=== PATIENT | male | born 1960 | race Native Hawaiian/Other Pacific Islander ===

== ENCOUNTER 2017-08-30 10:27 | Day surgery (SDC) | payer OTHER, MEDICARE ==
[~2017-08-30 10:27] MED LIST: ceFAZolin 2 GM/50 ML 2 GM/50 ML BAG IV ONE
[2017-08-30] MEDS ORDERED: LACTATED RINGERS 1,000 ML IV ONE (11:01)
[2017-08-30] MEDS ORDERED: BUPIVACAINE 0.5% PF 10 ML VIAL ONE (16:24)
[2017-08-30] MEDS ORDERED: BUPIVACAINE 0.5% PF 30 ML VIAL INFIL ONE (17:03)
[2017-08-30] MEDS ORDERED: BUPIVACAINE 0.5% PF 10 ML VIAL IM ONE (17:14)
--- NOTE | 2017-08-30 17:26 | OPERATIVE REPORT ---
Operative Report - General Procedure Date: 08/30/17 Planned Procedure: LEFT subclavian Portacath placement - Procedure Note Anesthesia Technique: Local (20 mL 1/2% marcaine), MAC IV Fluids (mL): 800 Estimated Blood Loss (mL): 5 Complications: None. - Other Other Information/Narrative: OPERATIVE DESCRIPTION/REPORT: After verbal and written informed consent was obtained detailing the risks of infection, bleeding requiring transfusion with its risks, nerve injury, and , and after I met with the patient confirming the surgery and the site of the surgery, the patient was brought to the operative suite and placed supine on the operating table. Great care was taken to avoid pressure points to prevent pressure necrosis or nerve injury. Monitoring devices were applied along with TEDs and pneumatic compressive stockings (to prevent DVT). The patient received preoperative antibiotics for surgical prophylaxis. Isa Sam sedated and anesthetized the patient for the entire procedure. The patient was prepped and draped in the usual sterile manner. A "time in" then confirmed that the patient was identified with 3 identifiers (name, date and medical record number), the history and physical was in the chart, the signed consent confirming the procedure was in the chart, the patient was in the correct position, the aforementioned prophylactic measures were in place or given, we had the correct personnel and equipment to complete the procedure and that anesthesia, surgery and nursing were given an opportunity to express any concerns. With the agreement of everyone in the room, we proceeded with the operation. After the subclavian region was anesthetized using % marcaine and the patient placed in Trendelenberg position, an [employer] Smartport kit (Catalog # [id number], Lot #[id number]) was opened. The finder needle was inserted into the subclavian vein taking great care to place it just under the clavicle in order to minimize the risk of pneumothorax. When good venous blood return was obtained, the wire was placed through the needle and into the vein without difficulty. Cardiac irritability confirmed that the catheter was correctly going down towards the heart. Below and lateral to the needle insertion site, the area was anesthetized again using % marcaine and a transverse incision was made just large enough to accommodate the port. This incision was taken down to the fascia using sharp dissection and the area for the port was created using blunt downward dissection. Meticulous hemostasis was obtained using Bovie electrocautery. A knife was inserted along the wire to widen the insertion site and this was further dilated using a Sharon. The port was flushed with heparinized saline and placed in the pouch and the catheter was then passed to the needle opening using the passer. The catheter was then measured against the patients anterior chest and cut so that the tip would lie 2 cm below the manubrial-sternal junction. The port was secured to the fascia using a 3-0 Prolene on the side of the opening of the port. The catheter was then wiped and wrapped with a heparinized soaked 4x4. The dilator and sheath were then carefully inserted over the wire and the dilator and wire withdrawn. The catheter was then inserted into the sheath and the sheath was broken away from the catheter leaving the catheter in place in the vein. An X-ray confirmed placement of the catheter tip in the right atrium/supracardiac vena cava without pneumothorax. Using a Hueber needle the port was accessed and good blood return as well as easy flush was noted. The subcutaneous tissue was approximated using 3-0 Vicryl and the skin incisions were approximated with 4-0 Monocryl in a subcuticular fashion. The skin prep was washed off and prepped with benzoin. Steristrips were applied. At this point a time out was performed that confirmed that all the counts were correct, the procedure that was performed, the blood loss, the IV fluids administered, and the patients condition. A dressing was placed on the wound. Having tolerated the procedure well, the patient was taken to short stay in good and stable condition. The patient was instructed that the Portacath could be used immediately. [employer] disclaimer: This document was created in part using voice recognition technology. Because of the inherent limitations of the system ([employer]'s [employer] D[employer]ate user manual states that the licensee understands that speech recognition is a statistical process and that recognition errors are inherent in the process), occasional same sounding word substitutions and grammatical errors do occur and persist despite proofreading. Please read this document for context.
[2017-08-30] MEDS ORDERED: fentaNYL 250 MCG/5 ML VIAL IVP ONE (17:30)
[2017-08-30] MEDS ORDERED: PROPOFOL 200 MG/20 ML VIAL IVP ONE (17:30)
--- NOTE | 2017-08-30 17:33 | XRAY Report ---
EXAM: CHEST RADIOGRAPHY EXAM DATE: 08/30/2017 05:18 PM. CLINICAL HISTORY: LINE PLACEMENT CONFIRMATION. COMPARISON: None. TECHNIQUE: 1 view. FINDINGS: Lungs/Pleura: Right costophrenic angle not included. No definite acute infiltrate, consolidation, eff usion, or pneumothorax. Mediastinum: Mild cardiomegaly. Upper lobe vessels not distended. Other: Left Port-A-Cath with tip in mid to lower SVC about 1.3 cm below level of lucius. IMPRESSION: Left Port-A-Cath placement. [facility] Referring Provider Line: [phone] SITE ID: [id number]
[2017-08-30 17:51] VITALS: BP 124/87
== END 2017-08-30 10:28 | disposition home or self-care (01) ==
LOC: SDS 10:27
PROVIDERS: ATTEND Surgery
PROC: 05H633Z Insertion of Infusion Device into Left Subclavian Vein, Percutaneous Approach (ICD-10-PCS; principal; 2017-08-30 11:45)
DX: G12.21 Amyotrophic lateral sclerosis (principal); E11.9 Type 2 diabetes mellitus without complications; I10 Essential (primary) hypertension
CPT/HCPCS: 36561; C1788; J0690; J3010; J7120; 71045

== ENCOUNTER 2019-08-16 15:29 | Outpatient (CLI) | payer SELFPAY | END 2019-08-16 15:30 | disposition home or self-care (01) | LOC: LAB 15:29 | DX: Z01.89 Encounter for other specified special examinations (principal) ==

== ENCOUNTER 2020-02-06 05:11 | Outpatient (CLI) | payer OTHER, MEDICARE | END 2020-02-06 23:59 | disposition critical access hospital (66) | LOC: EMS 05:11 | PROVIDERS: ATTEND Surgery | DX: S01.01XA Laceration without foreign body of scalp, initial encounter (principal); M25.552 Pain in left hip; M54.9 Dorsalgia, unspecified; R11.0 Nausea; W18.39XA Other fall on same level, initial encounter; Y92.000 Kitchen of unspecified non-institutional (private) residence as the place of occurrence of the external cause | CPT/HCPCS: A0425; A0427 ==

== ENCOUNTER 2020-02-06 05:28 | Inpatient (IN) | payer OTHER, MEDICARE ==
--- NOTE | 2020-02-06 05:31 | ED Physician Documentation ---
History of Present Illness - Stated complaint Stated Complaint: GLF - History obtained from History obtained from: Patient - Additonal information Additional information: Is a 59-year-old male who has ALS today was in the kitchen when he got dizzy and fell and hit his head he arrives see collared and backboarded he is complaining of head neck and upper back pain.Patient denies taking blood thinners. Review of Systems Constitutional: reports: Reviewed and negative Eyes: reports: Reviewed and negative Ears: reports: Reviewed and negative Nose: reports: Reviewed and negative Throat: reports: Reviewed and negative Cardiac: reports: Reviewed and negative Respiratory: reports: Reviewed and negative GI: reports: Reviewed and negative : reports: Reviewed and negative Skin: reports: Laceration (s) Musculoskeletal: reports: Reviewed and negative Neurologic: reports: Head injury Psychiatric: reports: Reviewed and negative Endocrine: reports: Reviewed and negative Immunocompromised: reports: Reviewed and negative PD PAST MEDICAL HISTORY - Past Medical History Cardiovascular: Hypertension Endocrine/Autoimmune: Type 2 diabetes Musculoskeletal: Chronic back pain - Past Surgical History General: Cholecystectomy, Colonoscopy, EGD Ortho: Rotator cuff repair, Arthroscopic surgery, Spine surgery, Other - Present Medications Home Medications: Ambulatory Orders Medication Instructions Recorded Confirmed No Known Home Medications 02/06/20 02/06/20 - Allergies Allergies/Adverse Reactions: Allergies Allergy/AdvReac Type Severity Reaction Status Date / Time No Known Drug Allergies Allergy Verified 08/25/17 15:32 PD ED PE NORMAL - Vitals Vital signs reviewed: Yes - General General: Alert and oriented X 3, No acute distress, Well developed/nourished - HEENT HEENT: PERRL, Other (Abrasions noted to the left side of the scalp, swelling to the left side of the face as well no raccoon eyes no tomas sign no septal hematoma no acute missing teeth no hemotympanum bilaterally) - Neck Neck: Supple, no meningeal sign - Cardiac Cardiac: RRR, No murmur - Respiratory Respiratory: No respiratory distress, Clear bilaterally - Abdomen Abdomen: Normal bowel sounds, Soft, Non tender, Non distended - Back Back: Other (thoracic ttp, no step offs or deformities) - Derm Derm: Warm and dry, Other - Extremities Extremities: No deformity - Neuro Neuro: Alert and oriented X 3, Other (baseline from ALS, unable to move arms, no acute neurological deficit noted.) - Psych Psych: Normal mood, Normal affect Results - Vitals Vitals: Vital Signs - 24 hr 02/06/20 02/06/20 06:42 07:13 Heart Rate 69 Respiratory 16 18 Rate Blood Pressure 132/81 H O2 Saturation 99 99 Oxygen O2 Source Room air - EKG (time done) 05:57 Rate: Other (no stemi) - Labs Labs: Laboratory Tests 02/06/20 02/06/20 02/06/20 06:36 06:36 06:36 WBC 15.8 H RBC 5.00 Hgb 15.5 Hct 46.5 MCV 93.0 MCH 31.0 MCHC 33.3 RDW 13.2 Plt Count 238 MPV 9.3 Neut # (Auto) 14.2 H Lymph # (Auto) 0.5 L [place] # (Auto) 0.9 Eos # (Auto) 0.0 Baso # (Auto) 0.0 Absolute Nucleated RBC 0.00 Nucleated RBC % 0.0 PT 12.4 INR 1.1 APTT 29.3 Sodium 135 Potassium 3.8 Chloride 102 Carbon Dioxide 24 Anion Gap 9.0 BUN 24 H Creatinine 0.8 Estimated GFR (MDRD) 98 Glucose 167 H Calcium 9.5 Total Bilirubin 1.3 H AST 40 ALT 38 Alkaline Phosphatase 183 H Total Creatine Kinase 1097 H* Troponin I High Sens Total Protein 7.4 Albumin 3.9 Globulin 3.5 Albumin/Globulin Ratio 1.1 Lipase 30 Ethyl Alcohol < 5.0 02/06/20 06:36 WBC RBC Hgb Hct MCV MCH MCHC RDW Plt Count MPV Neut # (Auto) Lymph # (Auto) [place] # (Auto) Eos # (Auto) Baso # (Auto) Absolute Nucleated RBC Nucleated RBC % PT INR APTT Sodium Potassium Chloride Carbon Dioxide Anion Gap BUN Creatinine Estimated GFR (MDRD) Glucose Calcium Total Bilirubin AST ALT Alkaline Phosphatase Total Creatine Kinase Troponin I High Sens 18.7 Total Protein Albumin Globulin Albumin/Globulin Ratio Lipase Ethyl Alcohol PD MEDICAL DECISION MAKING - ED course Complexity details: considered differential (Closed head injury, scalp laceration, facial fracture, cervical spine injury, thoracic spine injury, pelvic injury. Electrolyte derangement dehydration UTI), other (Patient will be signed out at shift change to Dr. Leonardo Colbert. ) Departure - Departure Disposition: ED Place in Observation Clinical Impression: Nasal fracture, Acetabular fracture, Post concussive syndrome, Lightheaded, Scalp laceration, ALS (amyotrophic lateral sclerosis) Fall Qualifiers: Encounter type: initial encounter Qualified Code(s): W19.XXXA - Unspecified fall, initial encounter Condition: Stable Discharge Date/Time: 02/06/20 10:42
[2020-02-06] MEDS ORDERED: BACITRACIN ZINC OINT 1 PACKET TOP STA (05:45)
[2020-02-06] MEDS ORDERED: TETANUS/DIPHTHERIA/PERTUSSIS 0.5 ML SYRINGE IM ONE (05:45)
[2020-02-06 06:50] LABS: BASOPHILS % (AUTO) 0.3 %; EOSINOPHILS % (AUTO) 0.3 %; HGB - HEMOGLOBIN 15.5 g/dL (14.0-18.0); LYMPHOCYTES # (AUTO) 0.5 10^3/uL (1.5-3.5); LYMPHOCYTES % (AUTO) 3.4 %; MEAN CORPUSCULAR HGB CONC 33.3 g/dL (32.0-36.0); MEAN PLATELET VOLUME 9.3 fL (7.4-11.4); MONOCYTES # (AUTO) 0.9 10^3/uL (0.0-1.0); MONOCYTES % (AUTO) 5.8 %; NEUTROPHILS # (AUTO) 14.2 10^3/uL (1.5-6.6); NEUTROPHILS % (AUTO) 89.6 %; PLT - PLATELET COUNT 238 10^3/uL (130-450); RED CELL DISTRIBUTION WIDTH 13.2 % (12.0-15.0); WHITE BLOOD COUNT 15.8 x10^3/uL (4.8-10.8)
[2020-02-06 06:58] LABS: ALBUMIN 3.9 g/dL (3.2-5.5); ALBUMIN/GLOBULIN RATIO 1.1 (1.0-2.2); ALKALINE PHOSPHATASE 183 IU/L (42-121); ALT ALANINE AMINOTRANSFERASE 38 IU/L (10-60); AST ASPARTATE AMINOTRANSFERASE 40 IU/L (10-42); BILIRUBIN,TOTAL 1.3 mg/dL (0.2-1.0); BUN - BLOOD UREA NITROGEN 24 mg/dL (6-20); CALCIUM 9.5 mg/dL (8.5-10.3); CARBON DIOXIDE - CO2 24 mmol/L (21-32); CHLORIDE 102 mmol/L (101-111); CREATININE 0.8 mg/dL (0.6-1.2); GLUCOSE 167 mg/dL (70-100); LIPASE 30 U/L (22-51); SODIUM 135 mmol/L (135-145); TOTAL PROTEIN 7.4 g/dL (6.7-8.2)
[2020-02-06 07:00] LABS: CK- CREATINE KINASE 1097 IU/L (22-269)
[2020-02-06] MEDS ORDERED: SODIUM CHLORIDE 0.9% 1,000 ML IV STA (07:01)
[2020-02-06 07:17] LABS: INR 1.1 (0.8-1.2); PT - PROTHROMBIN TIME 12.4 secs (9.9-12.6)
[2020-02-06 07:28] LABS: PARTIAL THROMBOPLASTIN TIME 29.3 secs (24.9-33.3)
[2020-02-06] MEDS ORDERED: KETOROLAC 30 MG/ML VIAL IVP STA (07:50)
[2020-02-06] MEDS ORDERED: MECLIZINE 12.5 MG TABLET PO STA (07:50)
--- NOTE | 2020-02-06 08:08 | XRAY Report ---
PROCEDURE: Pelvis 1 View INDICATIONS: fall TECHNIQUE: 1 view(s) of the pelvis acquired. COMPARISON: None. FINDINGS: Bones: There is a minimally displaced fracture along the superior lateral aspect of the left acetabul ar roof. No suspicious bony lesions. Lower lumbar fusion screws are noted. Soft tissues: Visualized bowel gas pattern is normal. Moderate stool is noted. No suspicious soft t issue calcifications. IMPRESSION: Minimally displaced lateral left acetabular roof fracture. The above findings are concordant with preliminary report. Reviewed by: Bria Avina MD on 02/06/2020 8:06 AM PDT Approved by: Bria Avina MD on 02/06/2020 8:06 AM PDT Station ID: [id number]
--- NOTE | 2020-02-06 08:09 | CT Report ---
PROCEDURE: HEAD WO INDICATIONS: fall head injury TECHNIQUE: Noncontrast 4.5 mm thick angled axial sections acquired from the foramen magnum to the vertex. For r adiation dose reduction, the following was used: automated exposure control, adjustment of mA and/or kV according to patient size. COMPARISON: CT C-spine 02/06/2020 FINDINGS: Image quality: Excellent. CSF spaces: Basal cisterns are patent. No extra-axial fluid collections. Ventricles are normal in size and shape. Brain: No midline shift. No intracranial masses or hemorrhage. Jiménez-white matter interface is norm al. Skull and face: Calvarium and visualized facial bones are intact, without suspicious lesions. Sinuses: Visualized sinuses and mastoids are clear. IMPRESSION: 1. No acute intracranial process. The above findings are concordant with preliminary report. Reviewed by: Bria Avina MD on 02/06/2020 8:08 AM PDT Approved by: Bria Avina MD on 02/06/2020 8:08 AM PDT Station ID: [id number]
--- NOTE | 2020-02-06 08:18 | CT Report ---
PROCEDURE: CERVICAL SPINE WO INDICATIONS: fall TECHNIQUE: Noncontrast 3 mm thick sections acquired from the skull base to the T4 level. Sagittal and coronal r eformats were then constructed. For radiation dose reduction, the following was used: automated exp osure control, adjustment of mA and/or kV according to patient size. COMPARISON: None. FINDINGS: Image quality: Excellent. Bones: No fractures or dislocations. Visualized superior ribs are intact. Soft tissues: Prevertebral soft tissues are normal in thickness. No paravertebral hematomas. No ap ical pneumothoraces. Note is made of a small amount of contour bulge at the lower aspect of the visu alized trachea, most consistent with a small amount of mucus in the airway at that site. IMPRESSION: No trauma found. Presumed small amount of mucus within the lower trachea at the axial level of the tomas ng apices. Reviewed by: Mervin Fernandez MD on 02/06/2020 8:17 AM PDT Approved by: Mervin Fernandez MD on 02/06/2020 8:17 AM PDT Station ID: [id number]
--- NOTE | 2020-02-06 08:24 | CT Report ---
PROCEDURE: THORACIC SPINE WO INDICATIONS: fall thoracic back pain TECHNIQUE: Noncontrast 3 mm thick sections acquired through the region of interest in the thoracic spine. Sagit donnell and coronal reformats were then constructed. For radiation dose reduction, the following was used : automated exposure control, adjustment of mA and/or kV according to patient size. COMPARISON: Cervical spine plain film imaging same day.. FINDINGS: Image quality: Excellent. Bones: There is normal overall bony alignment. No acute vertebral body compression fractures. No s uspicious sclerotic or lytic bony lesions. Central spinal canal is of normal overall caliber. Soft tissues: No paravertebral masses or hematomas. Visualized posteromedial lungs appear clear exc ept for what appears to be mild posterior atelectasis or scarring at each lung base.. IMPRESSION: Mild atelectasis or scarring in each lung base posteriorly, no trauma found. Mild degenerative disc d isease and facet osteoarthritis noted along the thoracic spine, and extending into the cervical spine . Incidental note is made of a small amount of contour deformity formation at the left anterolateral tracheal mucosal surface, level of the lung apices. This likely is mild mucous retention. Reviewed by: Mervin Fernandez MD on 02/06/2020 8:22 AM PDT Approved by: Mervin Fernandez MD on 02/06/2020 8:22 AM PDT Station ID: [id number]
--- NOTE | 2020-02-06 09:03 | CT Report ---
PROCEDURE: MAXILLOFACIAL WO INDICATIONS: fall on face TECHNIQUE: Noncontrast 1.5 mm thick axial images acquired from the mandible through the frontal sinuses, with co jerome and sagittal reformatting. For radiation dose reduction, the following was used: automated ex posure control, adjustment of mA and/or kV according to patient size. COMPARISON: None. FINDINGS: Image quality: Excellent. Bones and teeth: Orbital allen are intact. Sinus allen show no fracture or deformity. Nasal bones and septum are intact except for what appears to be a small nondisplaced fracture involving the anter ior border of the nasal bones bilaterally.. There is bilateral nasal airway stenosis associated with mild rightward deviation of the midline nasal septum and mucosal thickening involving the nasal turbi nates. Visualized portions of the mandible demonstrate no fractures or subluxation. Zygomatic arches are intact. Pterygoid plates are intact. Visualized portions of the skull base and auditory canals are intact. Sinuses: Paranasal sinuses are aerated, without fluid levels, mucosal thickening, or mucoceles. Mas toid air cells are aerated. Soft tissues: No edema, masses, or fluid collections. No enlarged lymph nodes. No soft tissue lace rations or debris. Vascular: Visualized vascular structures appear normal in the absence of contrast. Bony vascular fo ramina and canals are intact. IMPRESSION: Apparent minimal fracture involving the anterior border of the nasal bones bilaterally, morphologic anomaly of mild rightward deviation of the midline nasal septum. Mucosal thickening invol ves the nasal turbinates bilaterally further accentuating bilateral nasal airway stenosis. Reviewed by: Mervin Fernandez MD on 02/06/2020 9:02 AM PDT Approved by: Mervin Fernandez MD on 02/06/2020 9:02 AM PDT Station ID: [id number]
--- NOTE | 2020-02-06 09:06 | XRAY Report ---
PROCEDURE: Chest 1 View X-Ray INDICATIONS: fall TECHNIQUE: One view of the chest was acquired. COMPARISON: CT chest 05/22/2015 FINDINGS: Surgical changes and devices: Port-A-Cath. Lungs and pleura: Minimal streaky opacities are noted within the left base. There is costophrenic ang le bilateral blunting. Mediastinum: Mediastinal contours appear normal. Heart size is normal. Bones and chest wall: No suspicious bony lesions. Overlying soft tissues appear unremarkable. IMPRESSION: 1. Streaky opacities within the left base likely atelectasis.Superimposed trace effusion cannot be ex cluded. 2. Blunting of the right costophrenic angle which may represent scarring versus trace effusion. The above findings are concordant with preliminary report. Reviewed by: Bria Avina MD on 02/06/2020 9:05 AM PDT Approved by: Bria Avina MD on 02/06/2020 9:05 AM PDT Station ID: [id number]
[2020-02-06] MEDS ORDERED: LACTATED RINGERS 1,000 ML IV STA (09:15)
--- NOTE | 2020-02-06 09:22 | ED Physician Documentation ---
ED Addendum - Addendum Addendum: 02/06/20 09:20 The patient is having some headache and some neck pain still but not too significant. His hip hurts but he is able to move his hip around well. He is feeling somewhat dizzy with head motion and also lightheaded with sitting up. This seems likely postconcussive. It is quite limiting his ability to even sit up. Compounding with his ALS, he is unable to really stand and navigate safely. This altered mental status with lightheadedness and headache after injury I feel has him unsafe for being able to even ambulate at this time.
[2020-02-06] MEDS ORDERED: oxyCODONE 5 MG TABLET PO PRN (09:24)
[2020-02-06] MEDS ORDERED: ONDANSETRON ODT 4 MG TABLET TL PRN (09:24)
[2020-02-06] MEDS ORDERED: ACETAMINOPHEN 325 MG TABLET PO PRN (09:24)
[2020-02-06] MEDS ORDERED: SODIUM CHLORIDE FLUSH 0.9% 10 ML SYRINGE IVP PRN (09:24)
--- NOTE | 2020-02-06 10:54 | PHARMACY PROGRESS NOTE ---
- Best Possible Medication History Admit Date and Time: 02/06/20923 Processed by: Pharmacy Medication History completed: Yes Patient Interview: Completed Secondary Source(s): Pharmacy records (PATIENT INTERVIEWED BY [employer]IPMENT OPERATOR. PATIENT CONFIRMS HE ONLY TAKES [facility] HERBAL REMEDY AT HOME. ), Insurance records As the person ultimately responsible for medication therapy, providers are able to order a medication from an existing home medication list in [facility] via the "Reconcile Routine" prior to Confirmation of that medication by desktop support manager. Such practice is discouraged except when the physician, in their clinical judgment, deems that a medical need exists for a medication without regard to previous use.
[2020-02-06 12:48] LABS: BILIRUBIN,URINE NEGATIVE (NEGATIVE); GLUCOSE, URINE (UA) 100 mg/dL (NEGATIVE); KETONES,URINE (UA) 15 mg/dL (NEGATIVE); LEUKOCYTE ESTERASE, URINE NEGATIVE (NEGATIVE); NITRITE,URINE NEGATIVE (NEGATIVE); OCCULT BLOOD,URINE MODERATE (NEGATIVE); PROTEIN,URINE 100 mg/dL (NEGATIVE); UROBILINOGEN,URINE 0.2 (NORMAL) E.U./dL (NORMAL)
[2020-02-06 12:50] LABS: CLARITY,URINE CLEAR (CLEAR)
[2020-02-06 13:11] LABS: BACTERIA,URINE Rare /HPF (None Seen); RBC,URINE 0-5 /HPF (0-5); SQUAMOUS EPITHELIAL CELL,UR NONE SEEN (<= Few)
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
--- NOTE | 2020-02-06 19:47 | HISTORY & PHYSICAL EXAMINATION ---
DATE OF SERVICE: 02/06/2020 Physician: Jennifer Forde MD PRIMARY CARE PROVIDER: Chase Newman MD. NEUROLOGIST: Dr. Martin, [facility]. CHIEF COMPLAINT: Severe dizziness with fall. HISTORY OF PRESENT ILLNESS: Patient is a very pleasant, male who Dictations ends here TD: 02/06/2020 17:21
--- NOTE | 2020-02-06 20:02 | HISTORY & PHYSICAL EXAMINATION ---
DATE OF SERVICE: 02/06/2020 Physician: Jennifer Forde MD PRIMARY CARE PROVIDER: Huber Newman MD. NEUROLOGIST: Dr. Martin at [facility]. CHIEF COMPLAINT: Acute vertigo and fall. HISTORY OF PRESENT ILLNESS: The patient began having symptoms of fasciculations and left arm weakness and leg weakness approximately 2013. He had two lumbar surgeries related to L and I injury. It required so much rehab that he felt that he was weak and tired from not enough rehabilitation. He went to go see the surgeon, who did his previous lumbar surgeries, and they did nerve conduction velocities and EMGs of upper extremity weakness and triceps shrinking, and initially the cervical spinal stenosis diagnosis was thought of; however, with those tests, he was sent for a second opinion from neurology and begin the laborious process of documenting amyotrophic lateral sclerosis. He then had a Port-A-Cath placement in 2017 for Radicava treatment. He did that for awhile, until he felt that it was making him "worse, not better." He stopped that approximately spring 2018. All along, he has known the prognosis of his disease. At this time, he really cannot use his arms very well. He can use his fingers and his hand a little bit. He has lost weight, because he has been unable to eat due to the inability to feed himself well. He has dysphagia, has to be careful and drink plenty of fluids. He is incontinent of urine and stool at times. He can still stand and walk a few steps, but it is very laborious. He lives alone. He no longer goes upstairs in his house and only lives downstairs. The few steps he does take will take him forever to recover. For instance, he describes eating as bringing himself to a standing position, walking to the kitchen sink, using his hand to lower his face down to the sink and bring his hand up at the same time to put a mouthful of food in his hand. He will attempt 2-3 mouthfuls and then have to go sit down again. It will take him an hour to eat a bowl of oatmeal. He has had a few falls, mainly because his legs have been weak and they give out from underneath him. He gets occasional help from his 2 daughters. One daughter lives in [place] and 1 daughter lives down the street from him. He does have a son, but his son is not as helpful as his daughters are. In the last few weeks, he has gotten weak enough that he has reluctantly agreed to caregivers. They come in 3 times a week for 2-1/2 hours at a time, and they basically focus on range of motion of his upper extremities. He has physical therapy that comes once a week on Mondays. In spite of this, he reluctantly admits that he is starting to fail more than ever. He is aware of the prognosis of Sophie Gehrig's disease, and he and his neurologist are amazed that he has survived for as well as. Today he got up to go to the bathroom. In getting up to go to the bathroom, he suddenly was overcome by sudden violent dizziness. The room was spinning around him and he fell to the ground. He lay there for a few minutes. He realized he could not get up because he was still violently dizzy every time we tried to turn his head. He is especially dizzy if he turns his head to the left and turns his gaze to the left. He then pushed himself with his legs, on his back, to the kitchen. Tried to lift up his leg to hit the phone on the wall, but could not make it. He did manage to push himself to the front door of his home. Managed to trigger the latch by lifting his leg on the door, opened the door a few inches and started yelling. His neighbor across the way heard him, came and picked him up and called 911. He laid on the ground for probably 3 or 4 hours. In the emergency room, he was evaluated by Dr. Colbert. Vital signs were afebrile. He is not hypoxic. He is a profoundly weak gentleman with upper extremity weakness that is profound, almost immobile arms, only able to use his hands. Legs move a little bit. He is alert, oriented. His labs show CPK that is slightly elevated at 1097. Troponins are normal at 18.7. White cell count was mildly elevated at 15.8. Urinalysis has proteinuria, glucosuria, moderate blood, occasional bacteria, no squamous cells. Leukocyte esterase negative. Ethyl alcohol level less than 5. He feels like he hit his head pretty hard, and as such he had a head CT, cervical spine CT, facial bone CT, and chest x-ray. Streaky opacities are seen in the left base, felt to be atelectasis. Facial bone CT showed minimal fracture of the anterior border of the nasal bones bilaterally. Slight right deviation. Thoracic spine CT without fracture of the vertebral bodies. Cervical spine CT with small amount of mucus in the lower trachea, but again no cervical spine fractures. Head CT with no acute intracranial process. No subdural. Pelvis CT with minimally displaced left lateral acetabular roof fracture. The patient continues to report that every time he turns his head to the left he gets violently dizzy. Even just rotating his eyes to look at him on the left side of the room will make him dizzy; whereas, before he is able to sit up and stand, he is unable to do so because of severe leg weakness and dizziness. He is now placed in observation to make sure he is not going to develop a subdural after hitting his head so hard. PAST MEDICAL HISTORY 1. Amyotrophic lateral sclerosis as above. One month before he was diagnosed, he had sudden double vision with incongruous extraocular movements. He as initially thought to have had a stroke, but was subsequently diagnosed as ALS. 2. Diabetes mellitus, diet controlled. No complications. 3. Benign essential hypertension, especially when he is in a doctor's office, but no medications. 4. Anxiety disorder related to his Sophie Gehrig's disease. 5. L and I injuries resulted in lumbar radiculopathy and two lumbar surgeries. 6. Gastroesophageal reflux disease, resulting in dysphagia. Some of the dysphagia is from amyotrophic lateral sclerosis. He has had 5 EGDs and dilation of a Schatzki ring. 7. Superficial phlebitis. 8. Seborrheic dermatitis that has worsened after stopping his Radicava treatments. He stopped treatments around 08/2018, and ever since then seborrhea has gotten much worse. Sheets of dandruff will fall off of him. 9. Fatty liver disease history. PAST SURGICAL HISTORY 1. Arthroscopy, left knee, in the . 2. Open left knee surgery. 3. Right ankle surgery in 1974. 4. Right shoulder open surgery . 5. EGD with history of dilations, last one approximately 1998. 6. Cholecystectomy. 7. Lumbar surgeries. ALLERGIES: NO KNOWN DRUG ALLERGIES. MEDICATIONS: No home medications. SOCIAL HISTORY: Born in [place]. 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 He worked for the [employer] in [facility]. He was unable to continue working once he got diagnosed with ALS. He is . Lives in his own home. He had moved to [facility] in approximately 1989, when his was deployed here for the [employer]. After their divorce, he never left [facility]. He has 1 adopted daughter and 2 children with his . He never smoked. Rarely drank alcohol. Has no history of recreational substance abuse. FAMILY HISTORY: Mom is alive at the age of 80, living alone in [place]. They are worried about her, because they cannot go visit her because of COVID. She has high blood pressure. No history of diabetes, cancer, heart attack, or stroke. Dad at age 80, approximately a year ago. He of congestive heart failure. Prior to his CHF, he had a history of a myocardial infarction in his 70s with stent placement, hypertension. One sister. She is healthy with no history of hypertension, diabetes, heart attack, or stroke. Two children, both healthy without any illnesses. REVIEW OF SYSTEMS CONSTITUTIONAL: He lost quite a bit of weight because of his dysphagia and inability to feed himself well. He has gained about 10 pounds back. He has had no fever or chills. He is always fatigued. EENT: Blurred vision, double vision comes and goes, but no visual field losses. No sore throat, no deafness. No rhinorrhea or coryza. GASTROINTESTINAL: As above. No anorexia, nausea, but positive dysphagia. No abdominal pain. No change in bowel habits. CARDIOVASCULAR: No chest pain, chest pressure, or chest discomfort. RESPIRATORY: He has chronic shortness of breath, where he cannot take a full breath. That has been ever since his diagnosis of ALS, but no change in that. No cough. No sputum. He does get food caught in the back of his throat and has to occasionally bring that up, but he does not regard that his respiratory problem. GENITOURINARY: He does not have urgency, frequency, dysuria, but does have incontinence. Starting did not feel when his bladder is full. MUSCULOSKELETAL: Positive for above. Muscle wasting of upper extremities. Unable to lift his arms up, and he has to bend his face down to bring his hands to his mouth. Legs are weak. No specific joint pain. No joint swelling. HEMATOLOGIC: No anemia, bleeding or bruising. PSYCHIATRIC: With a diagnosis of ALS, he has become very fatalistic, occasional bouts of anxiety. Not suicidal. He is starting to grieve the loss of his independence more and more, especially this last 2 months. ENDOCRINE. Glucose, at its highest, is in the 130s. Usually, he is in the 90s to low 100s. Checks irregularly. No polyphagia, polyuria, polydipsia. NEUROLOGIC: Positive for above. PHYSICAL EXAMINATION VITAL SIGNS: Temperature is 36.8, pulse 63, blood pressure 132/88. Respirations are 16. He is 98% on room air. GENERAL: He is an unshaven, thin, male who is alert, oriented, and speech is very lucid. Excellent historian. HEAD AND NECK: Has left sclerae that is injected. Slight tenderness and bogginess to the nose bridge, but no ecchymosis yet. Tongue has fasciculations, but it is midline. Speech is normal, without hoarseness. Neck is supple with shotty adenopathy. No bruits or goiter. LUNGS: Slow unlabored respirations. No increased respiratory effort. Occasional mild infrequent cough, bringing up phlegm. No hemoptysis. CARDIAC: Regular rate and rhythm without a murmur. ABDOMEN: Soft, hypoactive bowel sounds, nondistended. No suprapubic fullness or tenderness. EXTREMITIES: Minimal bruising on the shins. Left hip. Remarkable for atrophy of biceps, triceps, especially on the left arm. Forearm muscle atrophy. Intrinsic muscle atrophy of both hands. No clubbing, cyanosis or edema. Legs have reduced muscle mass, but not quite atrophy. NEUROLOGICAL: He has fasciculations of the tongue, atrophy of his muscles, with upper extremities much more effective than lower extremities. He can flex and extend at his ankles, barely able to lift his legs and move them slightly sideways off the sheets, but immediately has to put him down because he was so weak. Unable to abduct or adduct his arm at the shoulder, but able to flex his hands at wrist. Able to flex and extend his fingers. Hyperreflexive at the knees causing clonus. Cranial nerves appear intact. There is mild nystagmus in the horizontal plane. I cannot get him to sit up to do Romberg. LABORATORY DATA: Discussed in history of present illness as are x-rays. ASSESSMENT/PLAN 1. Vertigo. Some elements of nystagmus on physical exam. I cannot tell if this gentleman is having an acute episode of labyrinthitis. No deafness. I do not think Meniere's. Or is it a complication of his ALS. CT of the head is negative. PLAN: 1. Observation status. 2. Neuro checks q.8 hours. 3. Check orthostatics. 4. Monitor for possible subdural since he hit his head so hard. 2. Amyotrophic lateral sclerosis. Slow indolent course for him considering he has had it since 2014. Not diagnosed since 2016. For the first 2 years, he was relatively stable, ambulatory, independent. The last year has seen an insidious decline in his functional status, with a sharp decline over the last week or two. PLAN: 1. Please see advanced care planning conversation under separate dictation. 2. Copy to his neurologist at [facility]. 3. Hypertension. Not on medications. Currently stable. No change in medications. We will monitor. 4. Type 2 diabetes mellitus. Without complications, not on long-term use of insulin. PLAN: At home, he is well controlled. Here, random glucose is 167. No sliding scale insulin at this time, check fasting insulin in the morning. 5. Elevated CK. At this time, I do not think he is rhabdomyolysis. Creatinine is normal. I think this is just due to small muscle breakdown from being on the floor for a few hours. DO NOT RESUSCITATE status. Discussed with he and daughter. We will write for DO NOT RESUSCITATE. DEEP VENOUS THROMBOSIS PROPHYLAXIS: Is not ordered at this time since he is relatively sedentary, no change in ambulatory status, and will remain with the same status. ATTESTATION: That the patient will be discharged within 96 hours. cc: Ariana Martin MD TD: 02/06/2020 18:35 REVISED 02/07/2020 shaheen manager of manufacturing correction work type= HP orig. signed 02/06/2020@2144 JEANIED
[2020-02-06] MEDS: SODIUM CHLORIDE FLUSH 0.9% 10 ML SYRINGE IVP SCH (22:35)
[2020-02-07] MEDS: SODIUM CHLORIDE FLUSH 0.9% 10 ML SYRINGE IVP SCH ×3 (01:47→16:58)
[2020-02-07] MEDS: CARBOXYMETHYLCELLULOSE OPHTH DROPS EACHEYE PRN (08:18)
[2020-02-07] MEDS: MECLIZINE 12.5 MG TABLET PO PRN ×2 (10:06→16:59)
--- NOTE | 2020-02-07 13:02 | PROVIDER PROGRESS NOTE ---
Subjective - Prog Note Date Prog Note Date: 02/07/20 Prog Note Time: 12:58 - Subjective Pt reports feeling: Improved Subjective: In spite of his vertigo improving, it is still there. Just sitting up in bed causes him to feel as if he is about to fall over. He has less nausea. He was evaluated by physical therapy and she does not recommend discharged home. He really is completely dependent on needing help 10/01. She is astounded that he was able to be at home for as long as he has. Even though he was able to stand and walk at home, right now his truncal instability puts him at increased risk for falling again. Current Medications - Current Medications Current Medications: Active Medications Acetaminophen (Tylenol) 650 mg PO Q4HR PRN PRN Reason: Pain 1 to 4 Carboxymethylcellulose (Refresh 1% Ophth Drops) 1 drops EACHEYE PRN PRN PRN Reason: Dry Eye Last Admin: 02/07/20 08:18 Dose: 1 drops Documented by: Meclizine HCl (Antivert) 12.5 mg PO Q6HR PRN PRN Reason: Dizziness Last Admin: 02/07/20 10:06 Dose: 12.5 mg Documented by: Ondansetron HCl (Zofran Odt) 4 mg TL Q6HR PRN PRN Reason: Nausea / Vomiting Oxycodone HCl (Roxicodone) 10 mg PO Q4HR PRN PRN Reason: Pain 8 to 10 Sodium Chloride (Normal Saline Flush 0.9%) 10 ml IVP PRN PRN PRN Reason: NEEDED PER PROVIDER ORDERS Sodium Chloride (Normal Saline Flush 0.9%) 10 ml IVP 0100,0900,1700 [facility] Last Admin: 02/07/20 08:20 Dose: 10 ml Documented by: No Known Home Medications 02/06/20 Objective - Vital Signs/Intake & Output Reviewed Vital Signs: Yes Vital Signs: Vital Signs x48h Temp Pulse Resp BP Pulse Ox 02/07/20 08:17 36.6 C 18 99 02/07/20 05:15 36.7 C 68 18 116/81 H 99 Intake & Output: Intake & Output 02/04/20 02/05/20 02/06/20 02/07/20 23:59 23:59 23:59 23:59 Intake Total 3500 450 Output Total 1050 1375 Balance 2450 -925 - Objective General Appearance: positive: No acute distress, Alert, Other (6 foot tall, 79.5 kg unshaven male.) Eyes Bilateral: positive: PERRL ENT: positive: Pharynx nml Neck: positive: No JVD. negative: Stiff neck Respiratory: positive: Chest non-tender. negative: Wheezes, Rales, Rhonchi Cardiovascular: positive: Regular rate & rhythm, No murmur. negative: Gallop/S4, Friction rub Abdomen: positive: Non-tender, No organomegaly, Nml bowel sounds, No distention, Other (Able to eat all of his breakfast this morning but had to rely on the nurs e to feed him. He has to chew completely, swallow carefully with frequent liquids in between to avoid food getting stuck in his esophagus.No episodes of choking noted.) Skin: positive: Warm, Dry Extremities: positive: Non-tender, No pedal edema Neurologic/Psychiatric: positive: Oriented x3, CN's nml (2-12), Other (He can't sit up without 2 person max assist). negative: Motor nml (Severely reduced muscle mass of the upper extremities especially in the biceps, triceps, brachial radialis. Able to flex and extend mainly at the wrist. And fingers. About 15 degrees of flexion at the elbow is the only strength he can bring himself to do. Unable to AB duct or abduct at the shoul) Babinski Reflex: Right: Up, Left: Up - Lab Results Fish Bones: 02/06/20 06:36 02/06/20 06:36 Other Labs: Lab Results x24hrs 02/06/20 Range/Units 12:05 Urine RBC 0-5 (0-5) /HPF Urine WBC 0-3 (0-3) /HPF Ur Squamous Epith Cells NONE SEEN (<= Few) Urine Bacteria Rare (None Seen) /HPF Urine Culture Comments NOT INDICATED Assessment/Plan - Problem List (1) Vertiginous syndrome Impression: I have left a message with his neurology office. Dr. Martin is on vacation for the next week and a half. I did leave a message for the nurse to call me. [phone]. Trying to see if this is part of his progression of disease or something separate. Add meclizine to meds. (2) Post concussive syndrome Impression: Headache is better. He fell hard enough to break his nose. Still no ecchymosis around his eyes. Neurochecks have shown no exchange specialist the course of the night. So no need for repeat CT since no evidence of subdural. (3) ALS (amyotrophic lateral sclerosis) Impression: With this most recent fall, he is now even weaker than before. While he can still stand he needs a two-person max assist to get there. At risk for falls at home since he lives alone. Plan: Changed to inpatient status Physical therapy to continue work with him Social work to work with family for disposition If the decision is to place him in respite care and snf facility, he will need a Covid test. As such I will order that today. (4) Diabetes mellitus Impression: check daily fasting POC glucose. Start SS only if glucose consistently high. Qualifiers: Diabetes mellitus type: type 2 Diabetes mellitus senior living insulin use: without pbx supervisor use Diabetes mellitus complication status: without complication Qualified Code(s): E11.9 - Type 2 diabetes mellitus without complications (5) Elevated CK Impression: Most likely due to laying on the floor about 4 hours. But no evidence of true rhabdomyolysis and that creatinine was normal. To trend, will check CK in the morning with a BMP in the morning.
[2020-02-08] MEDS: SODIUM CHLORIDE FLUSH 0.9% 10 ML SYRINGE IVP SCH ×4 (01:57→18:00)
[2020-02-08] MEDS: CARBOXYMETHYLCELLULOSE OPHTH DROPS EACHEYE PRN ×2 (01:57→05:56)
[2020-02-08 05:56] LABS: CALCIUM 8.7 mg/dL (8.5-10.3); CREATININE 0.9 mg/dL (0.6-1.2)
[2020-02-08] MEDS ORDERED: polyethylene glycoL 3350 17 GM PACKET PO SCH (09:00)
[2020-02-08] MEDS ORDERED: SENNA 8.6 MG TABLET PO SCH (09:00)
[2020-02-08] MEDS ORDERED: LACTOBACILLUS RHAMNOSUS GG CAPSULE PO SCH (11:00)
[2020-02-08] MEDS: MECLIZINE 12.5 MG TABLET PO PRN (11:31)
[2020-02-08] MEDS ORDERED: SALINE ENEMA 133 ML BOTTLE RC ONE (16:43)
[2020-02-08] MEDS ORDERED: SOAP SUDS ENEMA 1 EACH RC ONE (16:47)
--- NOTE | 2020-02-08 16:47 | Discharge Plan ---
Discharge Plan Problem Reviewed?: Yes Disposition: Home, Self Care Condition: Poor Diet: Regular Activity Restrictions: Activity as Tolerated Shower Restrictions: Yes (will need lift or caregiver to give him bath) Driving Restrictions: Yes (no driving) Health Concerns: You came to the hospital because of an abrupt onset of severe dizziness when you get out of bed. The dizziness caused her to fall to the floor. You already have a baseline disability of amyotrophic lateral sclerosis and have been experiencing greater and greater difficulty ambulating, eating, and taking care of herself over the last few years. You live alone. On admission, you have a small nasal fracture, and you landed on your left hip to give you a small chip fracture off her hip. But you do not have any infection, pneumonia, or brain injury causing bleeding in your brain. We kept you overnight, you remained stable other than the fact that you were still violently dizzy. We did try and problem solve to figure out how to get you help at home. For a while we thought that you can go to a assisted-living facility for respite care to allow your family to make plans, but then you and your family have changed her mind. You will be going home to your daughter's house. From there you will try and get private duty hire to take care of you. We did offer you the possibility of gett ing a PEG tube for tube feedings. You have opted not to do that. You were offered that a year ago and declined it at that time as well. Plan of Treatment: 1. Plan centered mainly around for nikolai how to care for you. Your goal is to remain at home but you do not have the finances to hire 10/01 caregivers. Possibility is to move in with 1 of your daughters, sell your home for the income, and then use that money to pay for caregivers while you live your daughter's home. Second possibility is for you to be placed in a assisted- living facility versus long-term facility for end-of-life care. 2. I will be sending you home with palliative care consultation service. They will hopefully be able to help you and your family make some decisions. 3. We did do advance care planning conversation here at the hospital and you have opted to be DO NOT RESUSCITATE. 4. At this time your ability to sit up, use your arms/hands, much less stand is severely impaired by instability of your ability to sit straight or stand up straight. Your legs are too weak, your dizziness is too severe. Please consider getting a wheelchair, Courtney lift and try to discuss this with your neurologist with a telemedicine visit. We did try and call her but she was on vacation for the next week and a half. Try and touch base with her when she gets back. Care Goals: To remain as comfortable as possible in the face of this horrifically disabling and progressive disease called Sophie Gehrig's disease. Your preference is to try and remain at home if possible. Assessment: Patient and daughter understand goals, they are just having difficulty trying to achieve them in view of the emotional connotation of his illness, and the l ogistics/expense of planning for caregiving. No Smoking: If you smoke, Please STOP! Call for help. Follow-up with: Huber Newman MD [Primary Care Provider] - IGOR HERRIGN MD [Physician No Access] -
[2020-02-08] MEDS ORDERED: LORazepam 2 MG/ML VIAL IVP SCH (17:27)
--- NOTE | 2020-02-08 17:58 | DISCHARGE SUMMARY ---
"Discharge Summary Admit Date: 02/02/20 Discharge Date: 02/08/20 Discharging Provider: Jennifer Forde MD Primary Care Provider: Ariana Martin MD Code Status: Do Not Attempt Resuscitation Condition at Discharge: Poor Discharge Disposition: 01 Home, Self Care - DIAGNOSES Discharge Diagnoses with Status of Each Condition: 1. Severe vertigo 2. Postconcussive syndrome 3. Fall at home 4. Amyotrophic lateral sclerosis 5. Type 2 diabetes mellitus, well controlled 6. Elevated CK 7. Small nondisplaced fracture of nose 8. Minimally displaced lateral left acetabular roof fracture 9. Dysphagia - HPI History of Present Illness: Pleasant 59-year-old white male who was diagnosed with Sophie Gehrig's in 2014 after presenting with symptoms since 2013. He has managed to stay independent and living at home with increasing difficulty from bilateral leg weakness, arm weakness, cerebellar ataxia, dysphasia. His neurologist is Dr. Amarilis Martin at [facility] neurology. He fell at home today. He had gotten up out of bed and was overcome by sudden violent vertiginous feeling. Fell to the floor without being able to protect his face. Lay on the floor as he tried to get to the phone in the kitchen and then pushing with his legs was able to get to the front door where he called out and neighbors called ambulance. Multiple films done of his body showed mainly a nose fracture, and a chip fracture off the left acetabulum. He was so vertiginous with no truncal stability that he was placed in observation. Past medical history is that of diabetes that is diet-controlled, hypertension, several L&I back injuries, reflux disease with Schatzki rings and dilations. - CONSULTS | PROCEDURES Procedures: 1. Pelvis plain film with minimally displaced left acetabular roof fracture. 2. Head CT without acute intracranial abnormality or hemorrhage. 3. Facial bone CT with nose fracture 4. Cervical spine CT with no trauma found. 5. Thoracic spine CT without fracture 6. Chest x-ray with streaky opacities in the left lung base that are likely atelectasis. Scarring versus trace effusion seen at the right costophrenic angle. - HOSPITAL COURSE Hospital Course: V Overnight, he really did not improve very much. Continue to manifest severe truncal instability. Physical therapy expressed the opinion that they were amazed he managed to stay at home as long as he did. During his stay certified nursing assistance had to feed him. He was unable to get out of bed. Seen by physical therapy and again unable to get out of bed. Converted to inpatient status as we try to find a disposition for him. We did find placement to an assisted living facility. At the very last moment, literally 30 minutes before discharge, he and his daughter change their mind. She really did not want them there because she wanted to be able to visit him. As such they decided to take him home even though she has no instruction in how to take care of him. Tonight he will go to his own home with his daughter's boyfriend to stay with him. In the meantime they will need to make plans for long-term care. He currently gets a care provider that comes by 3 times a week for 2-1/2 hours at a time. As well as physical therapy on Mondays. hog worker spent a long time trying to find avenues for care for him.We did call his neurologist at [facility]. Unfortunately Dr. Candelario is on vacation for the next week and a half. I discharge he is an alert oriented male who is 6 foot tall 79 kg. Unshaven, and his left sclera has cleared during his stay. Even though he has a broken nose there is no ecchymosis or black eye. Speech is been lucid. No JVD with shotty neck adenopathy. Lungs have slow, unlabored respiration. Occasionally he develops a rhonchi in the upper lung carney that clears with cough. I think he is retaining mucus or food. No dysphasia was seen during his stay. No coughing of during swallow. Regular rate and rhythm. Abdomen is benign. Very constipated during his stay requiring an enema on the day of discharge. Severe muscle wasting of extremities with upper extremities worse than lower extremities. He has 1+ strength of the arms, 2+ strength of the hands. He cannot lift his arms. 3+ strength of his legs. Fasciculations and clonus seen. No truncal stability and he will fall over if there is not an assist on either side of them. Greater than 30 minutes was spent coordinating discharge. - ALLERGIES Allergies/Adverse Reactions: Allergies Allergy/AdvReac Type Severity Reaction Status Date / Time No Known Drug Allergies Allergy Verified 08/25/17 15:32 - MEDICATIONS Home Medications: Ambulatory Orders Medication Instructions Recorded Confirmed No Known Home Medications 02/06/20 02/06/20 - LABS Result Diagrams: 02/06/20 06:36 02/08/20 05:15"
[2020-02-08 19:47] VITALS: BP 145/70
== END 2020-02-08 20:00 | disposition home or self-care (01) | DRG 56 ==
LOC: EDUNIT# → ED 05:28 → MS2 09:24 → OBSVTOIN 02-07 13:11
PROVIDERS: ADMIT Specialist; ATTEND Specialist
DX: G12.21 Amyotrophic lateral sclerosis (principal); S32.492A Other specified fracture of left acetabulum, initial encounter for closed fracture; J98.11 Atelectasis; R42 Dizziness and giddiness; F07.81 Postconcussional syndrome; Z91.81 History of falling; E11.9 Type 2 diabetes mellitus without complications; S02.2XXA Fracture of nasal bones, initial encounter for closed fracture; W18.30XA Fall on same level, unspecified, initial encounter; Y92.013 Bedroom of single-family (private) house as the place of occurrence of the external cause; R13.10 Dysphagia, unspecified; I10 Essential (primary) hypertension; K21.9 Gastro-esophageal reflux disease without esophagitis; K59.00 Constipation, unspecified; Z92.29 Personal history of other drug therapy; F41.9 Anxiety disorder, unspecified; M54.16 Radiculopathy, lumbar region; I80.9 Phlebitis and thrombophlebitis of unspecified site; L21.9 Seborrheic dermatitis, unspecified; R32 Unspecified urinary incontinence; H55.00 Unspecified nystagmus; H83.09 Labyrinthitis, unspecified ear; Z03.89 Encounter for observation for other suspected diseases and conditions ruled out; Z51.5 Encounter for palliative care; Z66 Do not resuscitate; Z99.3 Dependence on wheelchair
CPT/HCPCS: 36415; 70450; 70486; 71045; 72125; 72128; 72170; 80048; 80053; 80320; 81001; 82550; 83690; 84484; 85025; 85610; 85730; 87635; 90715; 93005; 96361; 96374; 96375; 97162; 97164; 97530; 99284; 99285; A9270; J2060; J7120; 81003; 87086

== ENCOUNTER 2020-02-19 21:13 | Outpatient (CLI) | payer OTHER, MEDICARE | END 2020-02-19 21:14 | disposition critical access hospital (66) | LOC: EMS 21:13 | PROVIDERS: ATTEND Surgery | DX: R06.00 Dyspnea, unspecified (principal) | CPT/HCPCS: A0425; A0429 ==

== ENCOUNTER 2020-02-19 21:33 | Emergency (ER) | payer OTHER, MEDICARE ==
--- NOTE | 2020-02-19 21:56 | ED Physician Documentation ---
PD HPI DYSPNEA - Stated complaint Stated Complaint: SOA - Chief complaint Chief Complaint: Resp - History obtained from History obtained from: Patient, Family, EMS - History of Present Illness Timing - onset: How many weeks ago (has had episodes of dyspnea associated with anxiety and get seizue) Timing - onset during: Eating, Other (when lying reclined.) Timing - details: Gradual onset, Intermittant Inciting event(s): Immobilization/travel (due to ALS progression). No: Out of meds, URI, Allergic rxn/anaphylaxis Associated symptoms: Chest pain / discomfort, Anxiety. No: Fever, Cough, Wheezing, Palpitations, Bilateral edema Similar symptoms before: No diagnosis (consideration from his Neurologist that at some point his muscle fatigue from the ALS will cause hypoventilation and thus episodes of dyspnea.) Recently seen: Emergency Dept, Admitted (few weeks ago due to fall and injury of acetabulum, nose and back. Has been less active since that admission.) Review of Systems Constitutional: denies: Fever, Chills Nose: denies: Rhinorrhea / runny nose, Congestion Throat: denies: Sore throat Cardiac: reports: Chest pain / pressure. denies: Palpitations, Pedal edema, Calf pain Respiratory: reports: Dyspnea. denies: Cough, Wheezing GI: denies: Abdominal Pain, Nausea, Vomiting, Diarrhea : denies: Dysuria Skin: denies: Rash, Lesions Neurologic: reports: Generalized weakness. denies: Focal weakness, Near syncope, Altered mental status, Headache Psychiatric: reports: Depressed, Anxiety. denies: Insomnia PD PAST MEDICAL HISTORY - Past Medical History Past Medical History: Yes Cardiovascular: Hypertension Respiratory: Pneumonia Neuro: Other Endocrine/Autoimmune: Type 2 diabetes GI: None : None HEENT: None Psych: None Musculoskeletal: Chronic back pain Derm: None - Past Surgical History Past Surgical History: Yes General: Cholecystectomy, Colonoscopy, EGD Ortho: Rotator cuff repair, Other - Present Medications Home Medications: Ambulatory Orders Medication Instructions Recorded Confirmed Famotidine 20 mg PO DAILY #30 tablet 02/20/20 Sucralfate [Carafate] 1 gm PO BID #20 tablet 02/20/20 - Allergies Allergies/Adverse Reactions: Allergies Allergy/AdvReac Type Severity Reaction Status Date / Time No Known Drug Allergies Allergy Verified 02/19/20 21:43 - Social History Does the pt smoke?: No Smoking Status: Never smoker Does the pt drink ETOH?: No Does the pt have substance abuse?: No - Immunizations Immunizations are current?: No Immunizations: Other immun not current - POLST Patient has POLST: No PD ED PE NORMAL - Vitals Vital signs reviewed: Yes - General General: Alert and oriented X 3, No acute distress, Well developed/nourished - HEENT HEENT: Moist mucous membranes, Pharynx benign - Neck Neck: Supple, no meningeal sign, No adenopathy - Cardiac Cardiac: RRR, No murmur - Respiratory Respiratory: Clear bilaterally - Abdomen Abdomen: Normal bowel sounds, Soft, Non tender, Non distended - Derm Derm: Normal color, Warm and dry - Extremities Extremities: Normal ROM s pain, No edema, No calf tenderness / cord - Neuro Neuro: Alert and oriented X 3, Normal speech, Other (Mild generalized weakness for urgent care nurse practitioner and pull and lifting up arms and legs.) Results - Vitals Vitals: Vital Signs - 24 hr 02/19/20 02/19/20 02/20/20 21:37 21:42 00:27 Temperature 36.5 C 36.1 C L Heart Rate 77 73 75 Respiratory 16 14 14 Rate Blood Pressure 156/102 H 156/102 H 121/83 H O2 Saturation 99 98 98 02/20/20 01:00 Temperature 36.7 C Heart Rate 87 Respiratory 16 Rate Blood Pressure 143/93 H O2 Saturation 99 Oxygen O2 Source Room air - Labs Labs: Laboratory Tests 02/19/20 02/19/20 02/19/20 22:16 22:16 22:16 WBC 9.0 RBC 5.26 Hgb 16.1 Hct 48.7 MCV 92.6 MCH 30.6 MCHC 33.1 RDW 13.2 Plt Count 304 MPV 8.8 Neut # (Auto) 6.7 H Lymph # (Auto) 1.2 L Lake # (Auto) 0.7 Eos # (Auto) 0.3 Baso # (Auto) 0.0 Absolute Nucleated RBC 0.00 Nucleated RBC % 0.0 D-Dimer Bld Gas Analysis Time Sample Site ABG pH ABG pCO2 ABG pO2 ABG HCO3 ABG Total CO2 ABG O2 Saturation ABG Base Excess Wolf Test O2 Delivery Device FiO2 Sodium 137 Potassium 4.0 Chloride 99 L Carbon Dioxide 26 Anion Gap 12.0 BUN 21 H Creatinine 0.8 Estimated GFR (MDRD) 98 Glucose 138 H Calcium 9.6 Total Bilirubin 1.1 H AST 28 ALT 31 Alkaline Phosphatase 174 H Troponin I High Sens 6.5 B-Natriuretic Peptide Total Protein 7.9 Albumin 4.0 Globulin 3.9 Albumin/Globulin Ratio 1.0 Lipase 30 02/19/20 02/19/20 02/19/20 22:16 22:16 22:45 WBC RBC Hgb Hct MCV MCH MCHC RDW Plt Count MPV Neut # (Auto) Lymph # (Auto) Lake # (Auto) Eos # (Auto) Baso # (Auto) Absolute Nucleated RBC Nucleated RBC % D-Dimer 493.1 H Bld Gas Analysis Time 2254 Sample Site LEFT RADIAL ABG pH 7.52 H ABG pCO2 27 L ABG pO2 106 H ABG HCO3 21.2 L ABG Total CO2 22.1 ABG O2 Saturation 98 ABG Base Excess -0.1 Wolf Test POSITIVE O2 Delivery Device RA FiO2 0.21 Sodium Potassium Chloride Carbon Dioxide Anion Gap BUN Creatinine Estimated GFR (MDRD) Glucose Calcium Total Bilirubin AST ALT Alkaline Phosphatase Troponin I High Sens B-Natriuretic Peptide 7 Total Protein Albumin Globulin Albumin/Globulin Ratio Lipase - Rads (name of study) chest xray Radiology: Prelim report reviewed (Lower lobe scarring similar to prior. No acute infiltrate.), See rad report chest CT-A Radiology: Prelim report reviewed (No PE is seen), See rad report PD MEDICAL DECISION MAKING - ED course Complexity details: reviewed results (He may be having chest episodes of weakness related to his ALS. However he does states he has been burping a lot without sour taste per se but does sound like he is having some reflux of air at least and presume some of gastric contents.He is sedentary so consider pneumonia or PE as well), considered differential (Consider possible reflux and mild aspirations. He is mostly sedentary with his ALS so consider pneumonia or PE. Also consider heart failure effusions.), d/w patient Departure - Departure Disposition: 01 Home, Self Care Clinical Impression: ALS (amyotrophic lateral sclerosis) Dyspnea Qualifiers: Dyspnea type: shortness of breath Qualified Code(s): R06.02 - Shortness of breath GERD (gastroesophageal reflux disease) Qualifiers: Esophagitis presence: esophagitis presence not specified Qualified Code(s): K21.9 - Gastro-esophageal reflux disease without esophagitis Clinical Impression: (Ruled Out): Pulmonary embolism, Pneumonia Condition: Stable Record reviewed to determine appropriate education?: Yes Instructions: ED Dyspnea Shortness of Breath, ED GERD Follow-Up: Huber Newman MD [Primary Care Provider] - Prescriptions: Sucralfate [Carafate] 1 gm PO BID #20 tablet Famotidine 20 mg PO DAILY #30 tablet Comments: Your tests here do not show any signs of serious heart or lung causes for your s hortness of breath. Given your description of a lot of belching and some symptoms around eating, thinking there is an element of reflux occurring which may be irritating the esophagus and triggering some shortness of breath episodes. I would suggest trying famotidine daily for the next several weeks and adding sucralfate twice daily for the next week or so and see if it improves your episodes/symptoms. Continue with have been your head elevated for a period after eating. Continue usual medicines otherwise. Also contact your neurologist specialist for your ALS and discuss the potential of increasing muscle weakness causing your dyspnea episodes. Here in the ER your oxygenation and ventilation appear normal. Discharge Date/Time: 02/20/20 01:12
[2020-02-19 22:20] LABS: BASOPHILS % (AUTO) 0.4 %; EOSINOPHILS # (AUTO) 0.3 10^3/uL (0.0-0.7); EOSINOPHILS % (AUTO) 3.6 %; HGB - HEMOGLOBIN 16.1 g/dL (14.0-18.0); LYMPHOCYTES # (AUTO) 1.2 10^3/uL (1.5-3.5); LYMPHOCYTES % (AUTO) 13.8 %; MEAN CORPUSCULAR HEMOGLOBIN 30.6 pg (27.0-31.0); MEAN CORPUSCULAR HGB CONC 33.1 g/dL (32.0-36.0); MEAN CORPUSCULAR VOLUME 92.6 fL (80.0-94.0); MEAN PLATELET VOLUME 8.8 fL (7.4-11.4); MONOCYTES # (AUTO) 0.7 10^3/uL (0.0-1.0); MONOCYTES % (AUTO) 7.3 %; NEUTROPHILS # (AUTO) 6.7 10^3/uL (1.5-6.6); NEUTROPHILS % (AUTO) 74.6 %; PLT - PLATELET COUNT 304 10^3/uL (130-450); RED BLOOD COUNT 5.26 10^6/uL (4.70-6.10); RED CELL DISTRIBUTION WIDTH 13.2 % (12.0-15.0)
[2020-02-19 22:33] LABS: BILIRUBIN,TOTAL 1.1 mg/dL (0.2-1.0); CALCIUM 9.6 mg/dL (8.5-10.3); CREATININE 0.8 mg/dL (0.6-1.2); TOTAL PROTEIN 7.9 g/dL (6.7-8.2)
[2020-02-19] MEDS: SODIUM CHLORIDE 0.9% 1,000 ML IV STA (22:33)
[2020-02-19] MEDS: FAMOTIDINE 20 MG/2 ML SYRINGE IVP STA (22:33)
[2020-02-19 23:02] LABS: ABG BASE EXCESS -0.1 mmol/L (-2.0-3.0); ABG HCO3 21.2 mmol/L (22.0-26.0); ABG OXYGEN SATURATION 98 % (94-98); ABG PCO2 27 mmHg (34-45); ABG PH 7.52 (7.35-7.45); ABG PO2 106 mmHg (80-100); ABG TCO2 22.1 MMOL/L (21.0-29.0)
[2020-02-19 23:03] LABS: ABG FRACTION OF INSPIRED O2 0.21; ALLEN TEST POSITIVE
[2020-02-19] MEDS ORDERED: IOVERSOL 320 100 ML VIAL IVP ONE (23:12)
[2020-02-19] MEDS: IOVERSOL 320 100 ML VIAL IVP ONE (23:41)
[2020-02-20 01:11] VITALS: BP 143/93
--- NOTE | 2020-02-20 07:23 | CT Report ---
PROCEDURE: ANGIO CHEST W/WO INDICATIONS: dyspnea, ALS/sedentary, elevated d-dimer CONTRAST: IV CONTRAST: Optiray 320 ml: 80 PO CONTRAST: *NO PO CONTRAST TECHNIQUE: After the administration of intravenous contrast, 2 mm thick sections acquired from the pulmonary api chastity to the posterior costophrenic angles. 3-dimensional maximum intensity projection (MIP) coronal a nd sagittal reformats were then acquired through the thorax. For radiation dose reduction, the follow ing was used: automated exposure control, adjustment of mA and/or kV according to patient size. COMPARISON: Chest x-ray 02/19/2020, 02/06/2020. CT chest 05/22/2015 FINDINGS: Image quality: Excellent. Pulmonary arteries: Pulmonary arteries are normal in size, and demonstrate no intraluminal filling d efects to suggest central pulmonary embolism. Lungs and pleura: Curvilinear consolidation noted in the lingula of the left upper lobe, the posterio r aspect of the left lower lobe and the right lower lobe which could represent parenchymal scarring, atelectasis or pneumonia. No pleural effusions or pneumothorax. Central and peripheral airways are p atent. Mediastinum: Heart size is normal, without pericardial effusion. No mediastinal or hilar adenopathy . Thoracic aorta is normal in caliber and enhancement. Esophagus is normal in caliber, without hiat al hernia. Bones and chest wall: Left chest wall Port-A-Cath noted. No suspicious bony lesions. Ribs and thorac ic spine appear intact throughout. Spine degenerative disc disease and facet arthropathy are noted. The thyroid is normal. No axillary or supraclavicular adenopathy. Abdomen: The gallbladder is surgically absent. Visualized upper abdominal solid organs appear normal in the early arterial phase of enhancement. IMPRESSION: 1. No pulmonary embolus. 2. Curvilinear consolidation involving the lingula of left upper lobe, the left lower lobe and the ri ght lower lobe which could represent pleural-parenchymal scarring, atelectasis or pneumonia. Recommen d correlation with clinical and laboratory data. Reviewed by: Ngozi Hinson MD, PhD on 02/20/2020 7:22 AM PDT Approved by: Ngozi Hinson MD, PhD on 02/20/2020 7:22 AM PDT Station ID: [id number]
--- NOTE | 2020-02-20 08:33 | XRAY Report ---
PROCEDURE: Chest 1 View X-Ray INDICATIONS: dyspnea TECHNIQUE: One view of the chest was acquired. COMPARISON: 02/06/2020 FINDINGS: Surgical changes and devices: Stable left chest wall Port-A-Cath. Lungs and pleura: No pleural effusions or pneumothorax. Patchy opacities noted in the lung bases fransisco aterally left greater than right which could represent atelectasis or developing pneumonia. Mediastinum: Mediastinal contours appear normal. Heart size is normal. Bones and chest wall: No suspicious bony lesions. Overlying soft tissues appear unremarkable. IMPRESSION: Patchy opacities in the lung bases bilaterally which could represent scarring, atelectasis or develop ing pneumonia. Reviewed by: Ngozi Hinson MD, PhD on 02/20/2020 8:31 AM PDT Approved by: Ngozi Hinson MD, PhD on 02/20/2020 8:31 AM PDT Station ID: [id number]
== END 2020-02-20 01:12 | disposition home or self-care (01) ==
LOC: EDUNIT# → ED 21:33
DX: G12.21 Amyotrophic lateral sclerosis (principal); K21.9 Gastro-esophageal reflux disease without esophagitis; R06.02 Shortness of breath; F41.9 Anxiety disorder, unspecified; I10 Essential (primary) hypertension; E11.9 Type 2 diabetes mellitus without complications
CPT/HCPCS: 36415; 36600; 71045; 71275; 80053; 82803; 83690; 83880; 84484; 85025; 85379; 93005; 96361; 96374; 99284; Q9967

== ENCOUNTER 2020-08-24 06:53 | Outpatient (CLI) | payer MEDICARE | END 2020-08-24 06:54 | disposition critical access hospital (66) | LOC: EMS 06:53 | PROVIDERS: ATTEND Emergency Medicine | DX: R06.00 Dyspnea, unspecified (principal) | CPT/HCPCS: A0425; A0427 ==

== ENCOUNTER 2020-08-24 07:09 | Inpatient (IN) | payer MEDICARE, OTHER ==
[2020-08-24] MEDS ORDERED: SODIUM CHLORIDE 0.9% 1,000 ML IV STA (07:24)
--- NOTE | 2020-08-24 07:25 | ED Physician Documentation ---
PD HPI DYSPNEA - Stated complaint Stated Complaint: SOA - History obtained from History obtained from: Patient, Family (daughter), EMS (they report patient sedate on their arrival. HR fast 120, Sats low in 80s, improved with FM oxygen.) - History of Present Illness Timing - onset: How many weeks ago (1) Timing - onset during: Rest, Light activity Timing - duration: Weeks (1) Timing - details: Gradual onset, Still present (He has had dyspnea for the last week progressively worsening. No fevers. Mild cough. He states he notes the worst symptoms when he first gets up in the morning and his heart rate has been fast between 120 and 140. Oximetry has been normal at 96% or better. No chest pain per se. Worse this AM.) Inciting event(s): Other (He is sedentary most of the time with his ALS. He states he gets out of bed with assistance. He had been prescribed a BiPAP to use daily at least 1/2-hour at a time but has not been doing that regularly. No infectious exposures at home.). No: Out of meds, URI (No fever nor congestion but states mild cough in AMs, nonproductive.) Improved by: O2, Sitting up, Other (he tried a Xanax to see if it was anxiety, but did not feel improved, but did get sleepy.) Worsened by: Exertion. No: Laying flat Associated symptoms: Cough. No: Fever, Hemoptysis, Wheezing, Chest pain / discomfort, Bilateral edema Similar symptoms before: Diagnosis (Similar episode last February and then a year or 2 before that related to atelectasis versus pneumonia. Had CT-A chest in Feb 2020 negative for PE. Showed atelectasis vs pneumonia.) Recently seen: Not recently seen Review of Systems Constitutional: reports: Fatigue. denies: Fever, Chills Nose: denies: Rhinorrhea / runny nose, Congestion Throat: denies: Sore throat Cardiac: reports: Palpitations (notd fast heart rate with activity, 120-140 but regular. Improves after rest again.). denies: Chest pain / pressure Respiratory: reports: Dyspnea, Cough. denies: Wheezing GI: denies: Abdominal Pain, Vomiting, Diarrhea, Bloody / black stool Musculoskeletal: denies: Extremity swelling Neurologic: reports: Generalized weakness (chronic from ALS). denies: Focal weakness, Altered mental status, Headache PD PAST MEDICAL HISTORY - Past Medical History Cardiovascular: Hypertension Respiratory: Pneumonia Neuro: Other (ALS) Endocrine/Autoimmune: Type 2 diabetes GI: None : None HEENT: None Psych: None Musculoskeletal: Chronic back pain, Other (ALS) Derm: None - Past Surgical History Past Surgical History: Yes General: Cholecystectomy, Colonoscopy, EGD Ortho: Rotator cuff repair, Other - Present Medications Home Medications: Ambulatory Orders Medication Instructions Recorded Confirmed Alprazolam [Xanax] 0.25 mg PO PRN PRN 08/24/20 08/24/20 - Allergies Allergies/Adverse Reactions: Allergies Allergy/AdvReac Type Severity Reaction Status Date / Time No Known Drug Allergies Allergy Verified 08/24/20 09:40 - Living Situation Living Situation: reports: With family Living Arrangement: reports: At home - Social History Does the pt smoke?: No Smoking Status: Never smoker Does the pt drink ETOH?: No Does the pt have substance abuse?: No - Immunizations Immunizations are current?: No Immunizations: Other immun not current - POLST Patient has POLST: No PD ED PE NORMAL - Vitals Vital signs reviewed: Yes (Oxygenation is good) - General General: Well developed/nourished. No: Alert and oriented X 3 (somnolent initially but rousable to verbal and answers questions okay. ) - HEENT HEENT: Moist mucous membranes, Pharynx benign - Neck Neck: Supple, no meningeal sign, No adenopathy - Cardiac Cardiac: No murmur. No: RRR (regular but tachycardic) - Respiratory Respiratory: Clear bilaterally (not very deep respirations.) - Abdomen Abdomen: Soft, Non tender - Back Back: No CVA TTP - Derm Derm: Normal color, Warm and dry - Extremities Extremities: No edema, No calf tenderness / cord - Neuro Neuro: Alert and oriented X 3, Normal speech, Other (general weakness; unable to move himself into sitting position. Symmetric movement. ) Eye Opening: To Voice Motor: Obeys Commands Verbal: Oriented GCS Score: 14 Results - Vitals Vitals: Vital Signs - 24 hr 08/24/20 08/24/20 08/24/20 07:22 07:38 08:00 Temperature 36.1 C L 36.8 C Heart Rate 128 H 108 H 111 H Respiratory 30 H 18 26 H Rate Blood Pressure 134/100 H 111/94 H 120/93 H O2 Saturation 100 100 100 08/24/20 08/24/20 08/24/20 08:05 08:30 08:52 Temperature Heart Rate 110 H 107 H Respiratory 28 H 24 Rate Blood Pressure 113/90 H O2 Saturation 100 100 08/24/20 08/24/20 08/24/20 09:00 09:39 10:00 Temperature Heart Rate 108 H 91 94 Respiratory 25 H 29 H 28 H Rate Blood Pressure 115/91 H 111/88 H 114/95 H O2 Saturation 100 100 100 08/24/20 08/24/20 10:30 11:10 Temperature Heart Rate 90 105 H Respiratory 13 19 Rate Blood Pressure 119/98 H 120/91 H O2 Saturation 100 100 Oxygen O2 Source Nasal cannula Oxygen Flow Rate 2 - Labs Labs: Laboratory Tests 08/24/20 08/24/20 08/24/20 07:48 07:48 07:48 WBC 11.4 H RBC 4.96 Hgb 15.3 Hct 47.2 MCV 95.2 H MCH 30.8 MCHC 32.4 RDW 13.3 Plt Count 251 MPV 9.4 Neut # (Auto) 9.9 H Lymph # (Auto) 0.8 L Ashe # (Auto) 0.4 Eos # (Auto) 0.2 Baso # (Auto) 0.0 Absolute Nucleated RBC 0.00 Nucleated RBC % 0.0 D-Dimer 571.0 H Sodium 139 Potassium 3.6 Chloride 100 L Carbon Dioxide 24 Anion Gap 15.0 H BUN 20 Creatinine 0.8 Estimated GFR (MDRD) 98 Glucose 230 H Calcium 9.6 Magnesium 2.0 Total Bilirubin 1.5 H AST 42 ALT 45 Alkaline Phosphatase 237 H Troponin I High Sens B-Natriuretic Peptide Total Protein 7.4 Albumin 3.6 Globulin 3.8 Albumin/Globulin Ratio 0.9 L Nasal Adenovirus (PCR) Nasal B. parapertussis DNA (PCR) Nasal Coronavir 229E PCR Nasal Coronavir HKU1 PCR Nasal Coronavir NL63 PCR Nasal Coronavir OC43 PCR Nasal Enterovir/Rhinovir PCR Nasal Influenza B PCR Nasal Influenza A PCR Nasal Parainfluen 1 PCR Nasal Parainfluen 2 PCR Nasal Parainfluen 3 PCR Nasal Parainfluen 4 PCR Nasal RSV (PCR) Nasal B.pertussis DNA PCR Nasal C.pneumoniae (PCR) Kee Human Metapneumo PCR Nasal M.pneumoniae (PCR) Nasal SARS-CoV-2 (PCR) 08/24/20 08/24/20 08/24/20 07:48 07:48 07:48 WBC RBC Hgb Hct MCV MCH MCHC RDW Plt Count MPV Neut # (Auto) Lymph # (Auto) Ashe # (Auto) Eos # (Auto) Baso # (Auto) Absolute Nucleated RBC Nucleated RBC % D-Dimer Sodium Potassium Chloride Carbon Dioxide Anion Gap BUN Creatinine Estimated GFR (MDRD) Glucose Calcium Magnesium Total Bilirubin AST ALT Alkaline Phosphatase Troponin I High Sens 156.3 H* B-Natriuretic Peptide 44 Total Protein Albumin Globulin Albumin/Globulin Ratio Nasal Adenovirus (PCR) NOT DETECTED Nasal B. parapertussis DNA (PCR) NOT DETECTED Nasal Coronavir 229E PCR NOT DETECTED Nasal Coronavir HKU1 PCR NOT DETECTED Nasal Coronavir NL63 PCR NOT DETECTED Nasal Coronavir OC43 PCR NOT DETECTED Nasal Enterovir/Rhinovir PCR NOT DETECTED Nasal Influenza B PCR NOT DETECTED Nasal Influenza A PCR NOT DETECTED Nasal Parainfluen 1 PCR NOT DETECTED Nasal Parainfluen 2 PCR NOT DETECTED Nasal Parainfluen 3 PCR NOT DETECTED Nasal Parainfluen 4 PCR NOT DETECTED Nasal RSV (PCR) NOT DETECTED Nasal B.pertussis DNA PCR NOT DETECTED Nasal C.pneumoniae (PCR) NOT DETECTED Kee Human Metapneumo PCR NOT DETECTED Nasal M.pneumoniae (PCR) NOT DETECTED Nasal SARS-CoV-2 (PCR) NOT DETECTED PD MEDICAL DECISION MAKING - ED course Complexity details: reviewed results (CXR showing atelectasis vs infiltrate right lower lobe. Elevated d-dimer and also troponin. Will assess for PE with CTA. ), re-evaluated patient (more alert after few minutes here; question the Xanax effecting him initially. He still feels dyspnea (similar to the past week, new for him). Given Neb treatment with some improvement. ), considered differential, d/w patient ED course: Has a POLST form showing limited interventions. I talked with him and his daughter about the elevated D-dimer and troponin as well as the chest x-ray finding of some atelectasis versus pneumonia. They were agreeable on the CT chest to evaluate for clots. A PE could account for the lab abnormalities and symptoms. However if this is negative, further evaluation potentially with echocardiogram could be useful to evaluate type I versus type II heart injury. This may require him being in the hospital overnight as echo unavailable today but will be available tomorrow morning. With his ALS in progressive symptoms with that, they are not necessarily inclined to more aggressive treatment such as heart cath or stents. The literature would not necessarily support that that is a better alternative treatment anyway. Elevated trop without PE. COnsider type 1 versus type 2 injury with hypoxic episode this morning. Dr. Forde will have patient in hospital for further eval. Departure - Departure Disposition: ED Place in Observation Clinical Impression: Dyspnea, Tachycardia, Elevated troponin, ALS (amyotrophic lateral sclerosis), General weakness, Lung infiltrate Condition: Stable Record reviewed to determine appropriate education?: Yes
--- NOTE | 2020-08-24 07:57 | XRAY Report ---
PROCEDURE: Chest 1 View X-Ray INDICATIONS: dyspnea and cough TECHNIQUE: One view of the chest was acquired. COMPARISON: 02/19/2020 FINDINGS: Surgical changes and devices: Port-A-Cath. Lungs and pleura: No pleural effusions or pneumothorax. Patchy density, right lung base. Mediastinum: Mediastinal contours appear normal. Heart size is normal. Bones and chest wall: No suspicious bony lesions. Overlying soft tissues appear unremarkable. IMPRESSION: Patchy density, right lung base. Question pneumonia versus patchy atelectasis. Progress films are recommended until clear. Reviewed by: Gerson Vazquez MD on 08/24/2020 6:56 AM [facility] Approved by: Gerson Vazquez MD on 08/24/2020 6:56 AM [facility] Station ID: [id number]
[2020-08-24 08:02] LABS: BASOPHILS % (AUTO) 0.4 %; EOSINOPHILS # (AUTO) 0.2 10^3/uL (0.0-0.7); EOSINOPHILS % (AUTO) 1.7 %; HCT - HEMATOCRIT 47.2 % (42.0-52.0); HGB - HEMOGLOBIN 15.3 g/dL (14.0-18.0); LYMPHOCYTES # (AUTO) 0.8 10^3/uL (1.5-3.5); LYMPHOCYTES % (AUTO) 7.2 %; MEAN CORPUSCULAR HEMOGLOBIN 30.8 pg (27.0-31.0); MEAN CORPUSCULAR HGB CONC 32.4 g/dL (32.0-36.0); MEAN CORPUSCULAR VOLUME 95.2 fL (80.0-94.0); MEAN PLATELET VOLUME 9.4 fL (7.4-11.4); MONOCYTES # (AUTO) 0.4 10^3/uL (0.0-1.0); MONOCYTES % (AUTO) 3.8 %; NEUTROPHILS # (AUTO) 9.9 10^3/uL (1.5-6.6); NEUTROPHILS % (AUTO) 86.4 %; PLT - PLATELET COUNT 251 10^3/uL (130-450); RED BLOOD COUNT 4.96 10^6/uL (4.70-6.10); RED CELL DISTRIBUTION WIDTH 13.3 % (12.0-15.0); WHITE BLOOD COUNT 11.4 x10^3/uL (4.8-10.8)
[2020-08-24] MEDS ORDERED: ALBUTEROL NEB 2.5 MG/3 ML INH STA (08:15)
[2020-08-24 08:16] LABS: ALBUMIN 3.6 g/dL (3.2-5.5); ALBUMIN/GLOBULIN RATIO 0.9 (1.0-2.2); BILIRUBIN,TOTAL 1.5 mg/dL (0.2-1.0); CALCIUM 9.6 mg/dL (8.5-10.3); CREATININE 0.8 mg/dL (0.6-1.2); POTASSIUM 3.6 mmol/L (3.5-5.0); TOTAL PROTEIN 7.4 g/dL (6.7-8.2)
[2020-08-24 08:41] LABS: B. PARAPERTUSSIS- RESP PCR PAN NOT DETECTED; B. PERTUSSIS- RESP PCR PANEL NOT DETECTED; C. PNEUMONIAE- RESP PCR PANEL NOT DETECTED; CORONAVIRUS 229E-RESP PCR NOT DETECTED; CORONAVIRUS HKU1-RESP PCR NOT DETECTED; CORONAVIRUS NL63-RESP PCR NOT DETECTED; CORONAVIRUS OC43-RESP PCR NOT DETECTED; HUMAN METAPNEUMOVIRUS NOT DETECTED; INFLUENZA A- RESP PCR PANEL NOT DETECTED; INFLUENZA B - RESP PCR PANEL NOT DETECTED; M. PNEUMONIAE- RESP PCR PANEL NOT DETECTED; PARAINFLUENZA VIRUS 1 NOT DETECTED; PARAINFLUENZA VIRUS 2 NOT DETECTED; PARAINFLUENZA VIRUS 3 NOT DETECTED; PARAINFLUENZA VIRUS 4 NOT DETECTED; RHINOVIRUS/ENTEROVIRUS NOT DETECTED; RSV- RESP PCR PANEL NOT DETECTED; SARS-CoV-2 -RESP PCR PANEL NOT DETECTED
[2020-08-24] MEDS ORDERED: SODIUM CHLORIDE 0.9% 500 ML IV STA (09:00)
[2020-08-24] MEDS ORDERED: ASPIRIN CHEW 81 MG TABLET PO STA (09:01)
[2020-08-24] MEDS ORDERED: METOPROLOL 5 MG/5 ML VIAL IVP STA ×2 (09:01→11:02)
[2020-08-24] MEDS ORDERED: IOVERSOL 320 100 ML VIAL IVP ONE ×2 (09:14→09:59)
--- NOTE | 2020-08-24 10:17 | CT Report ---
PROCEDURE: ANGIO CHEST W/WO INDICATIONS: dyspnea, elevated D-dimer and Trop CONTRAST: IV CONTRAST: Optiray 320 ml: 80 PO CONTRAST: *NO PO CONTRAST TECHNIQUE: After the administration of intravenous contrast, 2 mm thick sections acquired from the pulmonary api chastity to the posterior costophrenic angles. 3-dimensional maximum intensity projection (MIP) coronal a nd sagittal reformats were then acquired through the thorax. For radiation dose reduction, the follow ing was used: automated exposure control, adjustment of mA and/or kV according to patient size. COMPARISON: 02/19/2020 FINDINGS: Image quality: Excellent. Pulmonary arteries: Pulmonary arteries are normal in size, and demonstrate no intraluminal filling d efects to suggest central pulmonary embolism. Lungs and pleura: Lungs are clear. Interval development of a small right pleural effusion and a norm al left pleural effusion. Bibasilar scarring. Central and peripheral airways are patent. Mediastinum: Heart size is normal, without pericardial effusion. No mediastinal or hilar adenopathy . Thoracic aorta is normal in caliber and enhancement. Esophagus is normal in caliber, without hiat al hernia. Bones and chest wall: No suspicious bony lesions. Ribs and thoracic spine appear intact throughout. The thyroid is normal. No axillary or supraclavicular adenopathy. Port-A-Cath. Abdomen: Visualized upper abdominal solid organs appear normal in the early arterial phase of enhanc ement. IMPRESSION: 1. No evidence acute pulmonary emboli. 2. Interval development of a small right pleural effusion and a minimal left pleural effusion. 3. Bibasilar scarring. Reviewed by: Gerson Vazquez MD on 08/24/2020 9:16 AM [facility] Approved by: Gerson Vazquez MD on 08/24/2020 9:16 AM [facility] Station ID: [id number]
[2020-08-24] MEDS ORDERED: LORazepam 2 MG/ML VIAL IVP STA (11:02)
[2020-08-24] MEDS ORDERED: cefTRIAXone 1 GM VIAL IVP STA (11:08)
[2020-08-24] MEDS ORDERED: ONDANSETRON 4 MG/2 ML VIAL IVP PRN (11:11)
[2020-08-24] MEDS ORDERED: ACETAMINOPHEN 325 MG TABLET PO PRN (11:11)
[2020-08-24] MEDS ORDERED: oxyCODONE 5 MG TABLET PO PRN (11:11)
[2020-08-24] MEDS ORDERED: ONDANSETRON ODT 4 MG TABLET TL PRN (11:11)
[2020-08-24] MEDS ORDERED: LORazepam 0.5 MG TABLET PO PRN (11:14)
[2020-08-24] MEDS ORDERED: LACTATED RINGERS 1,000 ML IV SCH (12:00)
--- NOTE | 2020-08-24 12:01 | HISTORY & PHYSICAL EXAMINATION ---
Chief Complaint - Chief Complaint Chief Complaint: dyspnea History of Present Illness - Admitted From Admitted From:: ED - History Obtained From Records Reviewed: [facility] History obtained from: Daughter Exam Limitations: dysphagia, somnolence (arouses to loud voice) - History of Present Illness HPI Comment/Other: 59 year old male with past hx ALS brought in for progressively worsening dyspnea, found to have O2 sats in the 50s on room air. History obtained from his daughter and ED provider given his dysphagia and dyspnea. Per his daughter, his caregiver was helping him on the toilet and noticed the patient was unable to help him get him up. The patient's son in law came to help get him back to bed and they called an ambulance to bring him to the ED. Per his daughter, the patient does not remember any of this. He has had progressively worsening dyspnea over the last week, no fevers or chills. Occasional productive cough in the morning upon first waking. Normally his oximetry is in the 90s but was low (unclear how low) when the caregiver checked. He denies chest pain. Labs were drawn in the ED, with a troponin measuring 145. 4 hours later it had increased to 1806. A D-Dimer was >500 and he was sent to CT for a CTA chest/thorax. He was negative for PE. An EKG revealed an NSTEMI, and he was admitted for supportive therapy for the NSTEMI as well as dyspnea. Denies chest pain or palpitations. Pt was diagnosed with ALS in 2016, with symptoms starting in 2013. He is sedentary due to progressing disease and relies on caregivers / for all care. His daughter reports he spends most of his time in bed. He had been prescribed a Trilogy to use daily but has not been doing so due to claustrophobia. He is not coughing. In the ED, he was found to have O2 sats to the 50s and placed on HFNC. He is now on CPAP while waiting for his daughters to bring his Trilogy from home. Update: This afternoon patient is more awake. He does not remember having difficulty in the bathroom, his son in law coming over, or EMS arriving. He reports that over the past few weeks he stopped using his Xanax because he believed he was getting a little better and did not need it. However, over the past week upon waking and sitting up he has noticed his heart rate speeding up and he has felt more short of breath despite having O2 sats in the 90s. His heart rate then sustains 120-140s for most of the day. He has noted that his quality of life has worsened and continues to do so and he is willing to be r eferred to hospice at this time. History - Past Medical History Cardiovascular: reports: Hypertension Respiratory: reports: Pneumonia Neuro: reports: Other (ALS dx 2016) Endocrine/Autoimmune: reports: Type 2 diabetes GI: reports: GERD, Other (dysphagia related to ALS) : reports: None HEENT: reports: None Psych: reports: Anxiety Musculoskeletal: reports: Chronic back pain, Other (ALS) Derm: reports: Other (seborrheic dermatitis) MRSA Hx?: No Other Past Medical History: hx fatty liver disease - Past Surgical History General: reports: Cholecystectomy, Colonoscopy, EGD Ortho: reports: Rotator cuff repair, Other (open left knee surgery , right ankle surgery 1974, lumbar surgeries) - Family & Social History Family History Comment/Other: Mom is alive at the age of 80-81, living alone in [place]. She has a hx of breast cancer and HTN. Dad at age 80 from CHF. He had a hx of ND in his 70s with stent placement, HTN. One sister. She has a history of stage 3 gastric cancer. Two children, both healthy. Living arrangement: At home Living Situation: With caregiver(s) Social History Notes: Born in [place]. He moved to [facility] in 1989 when his was deployed here for the [employer]. They eventually and he remained on [facility]. 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 He has 1 adopted daughter and 2 children with his . He is living at home with 24 hour caregiving, and his 2 daughters are closely involved with his care. Never smoker, never drank alcohol. Has no hx of recreational or illicit substance abuse. - Substance History Use: Uses substance without health or social issues: NONE Abuse: Recurrent use of substance despite neg consequences: NONE Dependence: Experiences withdrawal or developed tolerances: NONE - POLST Patient has POLST: No POLST Status: DNR Meds/Allgy - Home Medications Home Medications: Ambulatory Orders Medication Instructions Recorded Confirmed Alprazolam [Xanax] 0.25 mg PO PRN PRN 08/24/20 08/24/20 - Allergies Allergies/Adverse Reactions: Allergies Allergy/AdvReac Type Severity Reaction Status Date / Time No Known Drug Allergies Allergy Verified 08/24/20 09:40 Review of Systems - Constitutional Constitutional: reports: Fatigue, Weakness (related to ALS), Weight loss (Dysphagia related to ALS, requires caregivers to feed/hydrate, daughter reports he has had increased difficulties with swallowing and speaking) - Eyes Eyes: denies: Pain - Ears, Nose & Throat Ears, Nose & Throat: reports: Hoarseness (per daughter, weaker voice from dysphagia). denies: Ear pain, Nasal pain, Sore throat - Cardiovascular Cariovascular: denies: Palpitations, Chest pain, Lightheadedness - Respiratory Respiratory: reports: SOB at rest. denies: Cough - Gastrointestinal Gastrointestinal: denies: Abdominal pain, Abdominal distention, Constipation, Diarrhea - Genitourinary Genitourinary: denies: Dysuria - Musculoskeletal Musculoskeletal: reports: Muscle weakness (ALS). denies: Muscle pain, Back pain, Muscle aches - Integumentary Integumentary: denies: Rash, Pruritis - Neurological Neurological: reports: General weakness. denies: Headache, Dizziness - Psychiatric Psychiatric: reports: Anxiety - Endocrine Endocrine: denies: Polyuria, Polydypsia, Polyphagia - Hematologic/Lymphatic Hematologic/Lymphatic: denies: Anemia, Bruising - All Other Systems All Other Systems: reports: Reviewed and negative Prior Level of Functionality: Dependent on caregivers for all ADLs, iADLs, and care. Requires 24 hr assistance. Exam - Vital Signs Reviewed Vital Signs: Yes Vital Signs: Vital Signs x48h Temp Pulse Resp BP Pulse Ox 08/24/20 11:10 105 H 19 120/91 H 100 08/24/20 09:39 91 29 H 111/88 H 100 08/24/20 09:00 108 H 25 H 115/91 H 100 08/24/20 08:52 107 H 24 08/24/20 08:30 110 H 28 H 113/90 H 100 08/24/20 08:05 100 08/24/20 08:00 111 H 26 H 120/93 H 100 08/24/20 07:38 36.8 C 108 H 18 111/94 H 100 08/24/20 07:22 36.1 C L 128 H 30 H 134/100 H 100 - Physical Exam General Appearance: positive: No acute distress, Other (Thin, ill appearing male lying in bed with his eyes closed, awakens to normal voice.) Eyes Bilateral: positive: Normal inspection ENT: positive: Other (mild temporal wasting, prominent cheek bones) Neck: positive: Other (Notable wasting, clavicular bones and neck musculature very prominent) Respiratory: positive: Chest non-tender, Other (Breath sounds diminished. Unable to speak more than a few words without stopping to breathe, not due to f luid filled lungs but rather more air hunger from a weaker respiratory musculature) Cardiovascular: positive: Regular rate & rhythm, No murmur, Tachycardia Peripheral Pulses: positive: 2+ Abdomen: positive: Non-tender, No organomegaly, Nml bowel sounds, No distention Skin: positive: Pallor Extremities: positive: Other (Muscle wasting and atrophy to bilateral arms and legs, unable to move or lift extremities) Neurologic/Psychiatric: positive: Oriented x3 Sepsis Event Note (H) - Evaluation Current Stage of Sepsis: Ruled out Conclusion/Plan - Problem List (1) NSTEMI (non-ST elevated myocardial infarction) Conclusion/Plan: Troponins elevated to 1806 after initial troponin of 145. D-Dimer elevated to 571. CTA chest/thorax negative for acute PE. EKG with sinus tachycardia, prolonged QT and non-specific T-wave changes showing NSTEMI. He denies chest pain, only dypsnea. NSTEMI likely a result of hypoxia. After discussion with daughter and given Pt's ALS disease progression, will provide supportive care only at this time as he is not likely to have any benefit from a cardiac catheterization given his poor prognosis of weeks to 2-3 months related to ALS. 1. Aspirin daily (loading dose given in ED) 2. Enoxaparin BID 3. Metoprolol daily 4. Morphine and Nitro PRN chest pain 5. Telemetry while on ICU 6. Trend troponins Q4H x3 (2) ALS (amyotrophic lateral sclerosis) Conclusion/Plan: He began having symptoms of fasciculations and left arm weakness and leg weakness in approximately 2013. Formally diagnosed in 2015. He received Radicava treatment from 2017-spring 2018 when he felt it was making it worse. Has experienced progressive decline since before his January 2020 admission. After discharge from that admission he stayed with his daughter in [place] and eventually returned to his home on [facility] with 24 hour caregivers. His other daughter lives nearby and both check in frequently and are actively involved in his care. He is only able to move his 2nd fingers at this time. Dependent for food and hydration but has had less intake over the last few weeks due to increased dysphagia and concerns for swallowing. He has muscle wasting and is quite thin, malnourished appearing. Shallow unlabored respirations, required HFNC and CPAP to increase oxygen saturations. His daughters are bringing in his home Trilogy to work with while he is here. He has not been using it at home due to feelings of claustrophobia. He has spoken with Dr. Forde on his past admission regarding his goals of care and advanced care planning. Dr. Forde spoke with his daughter today, who reports he would like to remain at home with 24 hour caregiving until he passes. They are aware he has weeks to months remaining and are open to hospice referral. He previously declined hospice due to worry that a new drug would become available that may help his symptoms improve and he believed he would not be able to try it if he was on hospice. Discussed with his daughter that he would be allowed to discharge from hospice at any time should he choose. Will plan for supportive care at this time. 1. Hospice referral 2. Trilogy/RT referral- okay to use home Trilogy 3. Dysphagia precautions (3) Dyspnea Conclusion/Plan: Found to have O2 sats in the 50s on room air in the ED. Per his daughter he has a Trilogy at home that he has not consistently been using due to feelings of claustrophobia. He is currently on Trilogy, satting in the 90s. Respirations are shallow, regular and even, unlabored. 1. RT consult 2. Trilogy/CPAP as needed-okay to use home bipap 3. ABG (4) Diabetes mellitus Conclusion/Plan: Diet controlled. He does not take insulin or other medications for this. No recent A1C in the chart. He does not have any diabetic complications. BG 230 in the ED. 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 Unable to lift arms, hands, legs, and head from the bed due to disease progression. Requires full care for turning, feeding, bathing, and positioning. (6) GERD (gastroesophageal reflux disease) Conclusion/Plan: Hx of GERD. Per prior records, has had 5 EGDs and dilation of a Schatzki ring. Qualifiers: Esophagitis presence: esophagitis presence not specified Qualified Code(s): K21.9 - Gastro-esophageal reflux disease without esophagitis - Lab Results Lab results reviewed: Yes Fish Bones: 08/24/20 07:48 08/24/20 07:48 - Diagnostic Imaging Results Diagnostic Imaging Results: positive: Final report reviewed - EKG Results EKG Interpreted Independently: Yes EKG Comparison: Changed from prior EKG (prior EKG 2020 NSR, current EKG sinus tachycardia with non-specific T-wave changes) Core Measures - Anticipated LOS I expect patient to be DC'd or transferred within 96 hours.: Yes - DVT/VTE - Prophylaxis VTE/DVT Device ordered at admit?: Yes VTE/DVT Prophylaxis med ordered at admit?: No
[2020-08-24] MEDS ORDERED: NITROGLYCERIN SL 0.4 MG TABLET SL PRN (12:46)
[2020-08-24] MEDS ORDERED: ALPRAZolam 0.25 MG TABLET PO PRN (12:48)
[2020-08-24] MEDS ORDERED: atenoloL 25 MG TABLET PO SCH (13:00)
[2020-08-24] MEDS: SODIUM CHLORIDE FLUSH 0.9% 10 ML SYRINGE IVP SCH ×2 (13:36→23:22)
[2020-08-24] MEDS: CHLORHEXIDINE GLUCONATE 15 ML UDC PO SCH ×2 (13:37→20:27)
[2020-08-24] MEDS: ENOXAPARIN 60 MG/0.6 ML SYRINGE SUBQ SCH ×2 (13:37→20:38)
--- NOTE | 2020-08-24 14:23 | PHARMACY PROGRESS NOTE ---
- Best Possible Medication History Admit Date and Time: 08/24/20 1111 Processed by: Pharmacy Medication History completed: Yes Patient Interview: Pt unable to participate Secondary Source(s): Other family member, Pharmacy records, Insurance records As the person ultimately responsible for medication therapy, providers are able to order a medication from an existing home medication list in [facility] via the "Reconcile Routine" prior to Confirmation of that medication by passport support manager. Such practice is discouraged except when the physician, in their clinical judgment, deems that a medical need exists for a medication without regard to previous use.
[2020-08-24 14:45] LABS: ABG BASE EXCESS -3.2 mmol/L (-2.0-3.0); ABG HCO3 19.5 mmol/L (22.0-26.0); ABG OXYGEN SATURATION 99 % (94-98); ABG PCO2 29 mmHg (34-45); ABG PH 7.45 (7.35-7.45); ABG TCO2 20.4 MMOL/L (21.0-29.0)
[2020-08-24 14:46] LABS: ABG MODE OF VENTILATION SYNCHRONOUS/TIMES; ALLEN TEST POSITIVE
[2020-08-24 14:48] LABS: ABG FRACTION OF INSPIRED O2 0.21
[2020-08-24 14:50] LABS: ABG PO2 166 mmHg (80-100)
[2020-08-24] MEDS ORDERED: METOPROLOL 5 MG/5 ML VIAL IVP SCH (15:00)
[2020-08-24] MEDS: METOPROLOL 5 MG/5 ML VIAL IVP SCH ×2 (16:02→23:12)
--- NOTE | 2020-08-24 17:38 | ADVANCE CARE PLANNING NOTE ---
Advance Care Planning - Planning Encounter Date: 08/24/20 Time: 17:36 Purpose: establish goals of care Parties in Attendance: Patient, Hospitalist, DNP student Diana Jones Decisional Capacity of the Patient: alert, oriented, but short of breath - Encounter Subjective/Patient's Story: This is the second time I have met this roman man. I first met him February 06, 2020 where we establish goals of care at that point. Between that point and now he has continued to deteriorate. At that point in time "the quality of my life is deteriorated tremendously". He thought that he had reached the lowest point he could but it has continued to get worse. He was living by himself at that point in time and since then has now been able to hire 6 caregivers that take care of him 10/01. He no longer gets out of bed. Except for one time. He still tries to go to the bathroom on a toilet. He does not like the idea of a bedside commode. So every morning his crew gets him up to go to the bathroom. He has been having increasing problems with the sensation of not being able to breathe. He thought that it was panic attacks. For a while he was taking Xanax. But then he felt better and stopped taking the Xanax about 2 weeks ago. But he notices in the morning that when he is sat up in bed, his heart will start to race and will race for quite some time. The feeling of anxiety and shortness of breath will overtaken. In the last week is been getting worse. This morning he got up to go to the bathroom. Again struggled with a sensation of panic and anxiety and inability to breathe. He feels like his oxygen is okay because his O2 sat monitor tells him he is in the 90s. After being on the toilet he does not remember much what happened because he passed out. In addition to the respiratory distress, and the inability to get out of bed anymore, he is also having problems with swallowing and dysphagia. He is eating solid food rarely and drinking more and more liquid food. He is already decided against a feeding tube. He has already decided to be DO NOT RESUSCITATE. He wants to focus on symptom management. He knows that he does not want to undergo procedures such as coronary angiograms etc. He had spoken to hospice about 3 months ago. But he was not ready yet. He was hoping that some cure would come out that would be able to treat him. He was afraid that if he went into hospice, the opportunity to use treatment would be denied him. And then if he decided to get out of hospice, that he would not be able to get back to his regular insurance program. He is decided that the quality of his life really has deteriorated to the point that he does not want to continue this. If he were to have a natural cause of he does not want to be treated. He also is asking if we could make arrangements for hospice. Objective/Medical Story: male who had symptoms of ALS most likely in 2014. He was diagnosis possible lumbar radiculopathy due to his leg weakness and fasciculations and had back surgery. After back surgery he continued having symptoms and had further neurological evaluation where he was found to have ALS. This was in 2015. Between 2015 and 2019 he lost more and more strength. We admitted him in January 2020. At that time he was still able to stand and make it a few steps but was starting to have increasing falls. Was still able to use his hands and forearms but unable to lift his arms. Between January 2020 and now he is having increasing dyspnea. Speaking causes shortness of breath. Increasing dysphagia. He is down to almost a liquid diet now. He is unable to use his forearms or hands now. Bedbound except for caregiver standing him up and transferring him to the toilet. He was given a trilogy machine by order of his neurologist a few months ago. But he never used it because he did not think he needed it. He kept on telling himself that his problem was "anxiety and panic" and he would use the Xanax to treat his shortness of breath. With today's episode in his home, he was increasing he is short of breath as he got on the toilet. Lost consciousness. EMS was called and his O2 sat was 50%. I think that in turn induced an NSTEMI and his troponins are gone from 149-1800. Has had urinary retention for most of the day. His bladder scans have been 300 or greater. But he is steadily maintained he does not want a straight cath or Angulo catheter. He was finally able to urinate on his own. Goals of Care: 1. He wants to at home 2. He is always concerned about the cost and wonders if hospice will pick remover the cost of his medications and durable medical equipment. 3. He wants to continue his caregivers that he already has 4. He would like some advice about how to transition to a liquid diet 5. He would like a reasonable solution to treat the racing heart and anxiety he feels when he cannot breathe 6. He and his daughter have both stated that he does not want to be transferred for coronary disease. No angiograms, stents, etc. 7. N camelia Plan: At this time we will treat his NSTEMI with serial troponins. Wait for it to start trending down. He is on Lovenox, aspirin, beta-mookie. I do not think I will do an echocardiogram since it will not management associate. I will call patient care director tomorrow morning to request a consult. As I was leaving his room, his daughter was calling in on the phone. I shared with her his request and plans. She was relieved. Code Status: Do Not Attempt Resuscitation Time spent on advance care plannin
[2020-08-24] MEDS ORDERED: SLIPPERY ELM PO SCH (18:45)
[2020-08-24] MEDS: ATORVASTATIN 40 MG TABLET PO SCH (20:26)
[2020-08-24] MEDS ORDERED: CARBOXYMETHYLCELLULOSE OPHTH DROPS EACHEYE PRN (20:37)
[2020-08-24] MEDS: LACTATED RINGERS 1,000 ML IV SCH (23:18)
[2020-08-25 05:14] LABS: BASOPHILS % (AUTO) 0.5 %; EOSINOPHILS # (AUTO) 0.2 10^3/uL (0.0-0.7); EOSINOPHILS % (AUTO) 1.9 %; HCT - HEMATOCRIT 45.6 % (42.0-52.0); HGB - HEMOGLOBIN 14.9 g/dL (14.0-18.0); LYMPHOCYTES # (AUTO) 1.3 10^3/uL (1.5-3.5); LYMPHOCYTES % (AUTO) 16.2 %; MEAN CORPUSCULAR HEMOGLOBIN 30.8 pg (27.0-31.0); MEAN CORPUSCULAR HGB CONC 32.7 g/dL (32.0-36.0); MEAN CORPUSCULAR VOLUME 94.4 fL (80.0-94.0); MEAN PLATELET VOLUME 9.6 fL (7.4-11.4); MONOCYTES # (AUTO) 0.7 10^3/uL (0.0-1.0); MONOCYTES % (AUTO) 9.1 %; NEUTROPHILS # (AUTO) 5.7 10^3/uL (1.5-6.6); PLT - PLATELET COUNT 238 10^3/uL (130-450); RED BLOOD COUNT 4.83 10^6/uL (4.70-6.10); RED CELL DISTRIBUTION WIDTH 13.4 % (12.0-15.0); WHITE BLOOD COUNT 7.8 x10^3/uL (4.8-10.8)
[2020-08-25 05:26] LABS: CALCIUM 9.3 mg/dL (8.5-10.3); CREATININE 0.6 mg/dL (0.6-1.2); POTASSIUM 3.7 mmol/L (3.5-5.0)
[2020-08-25] MEDS: MORPHINE 2 MG/ML CARPUJECT IVP PRN ×3 (06:31→21:24)
[2020-08-25] MEDS: METOPROLOL 5 MG/5 ML VIAL IVP SCH ×2 (08:23→15:42)
[2020-08-25] MEDS: ENOXAPARIN 60 MG/0.6 ML SYRINGE SUBQ SCH ×2 (08:23→21:11)
[2020-08-25] MEDS: CHLORHEXIDINE GLUCONATE 15 ML UDC PO SCH ×2 (08:25→21:13)
[2020-08-25] MEDS: SODIUM CHLORIDE FLUSH 0.9% 10 ML SYRINGE IVP SCH ×2 (08:26→15:43)
[2020-08-25] MEDS: LACTATED RINGERS 1,000 ML IV SCH (08:31)
[2020-08-25] MEDS ORDERED: ASPIRIN EC 81 MG TABLET PO SCH (09:00)
[2020-08-25] MEDS ORDERED: BACILLUS COAGULANS PO SCH (09:00)
[2020-08-25] MEDS: ASPIRIN CHEW 81 MG TABLET PO SCH (09:00)
[2020-08-25] MEDS ORDERED: CASCARA SAGRADA PO SCH (09:00)
--- NOTE | 2020-08-25 11:37 | PROVIDER PROGRESS NOTE ---
Subjective - Prog Note Date Prog Note Date: 08/25/20 - Subjective Pt reports feeling: No change Subjective: Pt appearing weak and tired, reports feeling tired today. Reports he slept okay. Sat up to take a drink during my interview with him and visibly lost strength after one sip, with his head falling back against the bed as if he had no reserves left to hold his head up. Denies pain, n/v. Denies chest pain or palpitations. Troponins downtrending. Declining to use his Trilogy because he doesn't like the way it feels. Minimal respiratory effort, respirations are even but his chest and abdomen are barely moving. Objective - Vital Signs/Intake & Output Reviewed Vital Signs: Yes Vital Signs: Vital Signs x48h Temp Pulse Resp BP BP Pulse Ox 08/25/20 11:00 71 18 113/81 H 99 08/25/20 10:00 86 21 104/84 H 99 08/25/20 09:00 89 25 H 110/84 H 99 08/25/20 08:23 116/80 08/25/20 08:00 36.7 C 95 18 116/80 100 08/25/20 07:00 76 20 108/78 98 08/25/20 06:00 37.2 C 79 16 124/80 99 08/25/20 05:00 85 28 H 122/84 H 100 08/25/20 04:00 86 24 114/87 H 99 Intake & Output: Intake & Output 08/22/20 08/23/20 08/24/20 08/25/20 23:59 23:59 23:59 23:59 Intake Total 2247.5 1000 Output Total 725 805 Balance 1522.5 195 - Objective General Appearance: positive: Other (Cachectic, ill-appearing male. No apparent distress but very weak and unable to hold his head up. Eyes closed, rouses to v oice.) Eyes Bilateral: positive: Normal inspection ENT: positive: Other (Weak voice, mild temporal wasting, prominant cheek bones) Neck: positive: Other (notable wasting, clavicular bones and neck musculature very prominent; weakly holding his head up for a drink before losing strength and laying head back against the bed (in sitting position)) Respiratory: positive: Chest non-tender, Other (Diminished breath sounds, poor respiratory effort due to ALS. Very shallow breathing, using a lot of effort to speak and to breathe) Cardiovascular: positive: Regular rate & rhythm, No murmur Peripheral Pulses: 2+ Radial (R), 2+ Radial (L) Abdomen: positive: Non-tender, No organomegaly, No distention Skin: positive: Pallor Extremities: positive: Other (significant muscle atrophy and weakness. muscle wasting.) Neurologic/Psychiatric: positive: Oriented x3 - Lab Results Fish Bones: 08/25/20 05:05 08/25/20 05:05 Other Labs: Lab Results x24hrs 08/25/20 08/25/20 08/25/20 Range/Units 05:05 05:05 05:05 WBC 7.8 (4.8-10.8) x10^3/uL RBC 4.83 (4.70-6.10) 10^6/uL Hgb 14.9 (14.0-18.0) g/dL Hct 45.6 (42.0-52.0) % MCV 94.4 H (80.0-94.0) fL MCH 30.8 (27.0-31.0) pg MCHC 32.7 (32.0-36.0) g/dL RDW 13.4 (12.0-15.0) % Plt Count 238 (130-450) 10^3/uL MPV 9.6 (7.4-11.4) fL Neut # (Auto) 5.7 (1.5-6.6) 10^3/uL Lymph # (Auto) 1.3 L (1.5-3.5) 10^3/uL [place] # (Auto) 0.7 (0.0-1.0) 10^3/uL Eos # (Auto) 0.2 (0.0-0.7) 10^3/uL Baso # (Auto) 0.0 (0.0-0.1) 10^3/uL Absolute Nucleated RBC 0.00 x10^3/uL Nucleated RBC % 0.0 /100WBC Bld Gas Analysis Time Sample Site ABG pH (7.35-7.45) ABG pCO2 (34-45) mmHg ABG pO2 (80-100) mmHg ABG HCO3 (22.0-26.0) mmol/L ABG Total CO2 (21.0-29.0) MMOL/L ABG O2 Saturation (94-98) % ABG Base Excess (-2.0-3.0) mmol/L Wolf Test O2 Delivery Device Vent Mode FiO2 EPAP cmH2O IPAP cmH2O Sodium 137 (135-145) mmol/L Potassium 3.7 (3.5-5.0) mmol/L Chloride 104 (101-111) mmol/L Carbon Dioxide 25 (21-32) mmol/L Anion Gap 8.0 (6-13) BUN 15 (6-20) mg/dL Creatinine 0.6 (0.6-1.2) mg/dL Estimated GFR (MDRD) 137 (>89) Glucose 98 (70-100) mg/dL Calcium 9.3 (8.5-10.3) mg/dL Troponin I High Sens (2.3-19.7) ng/L B-Natriuretic Peptide 600 H (5-100) pg/mL Nasal Screen MRSA (PCR) (NEGATIVE) 08/24/20 08/24/20 08/24/20 Range/Units 23:52 17:35 14:05 WBC (4.8-10.8) x10^3/uL RBC (4.70-6.10) 10^6/uL Hgb (14.0-18.0) g/dL Hct (42.0-52.0) % MCV (80.0-94.0) fL MCH (27.0-31.0) pg MCHC (32.0-36.0) g/dL RDW (12.0-15.0) % Plt Count (130-450) 10^3/uL MPV (7.4-11.4) fL Neut # (Auto) (1.5-6.6) 10^3/uL Lymph # (Auto) (1.5-3.5) 10^3/uL [place] # (Auto) (0.0-1.0) 10^3/uL Eos # (Auto) (0.0-0.7) 10^3/uL Baso # (Auto) (0.0-0.1) 10^3/uL Absolute Nucleated RBC x10^3/uL Nucleated RBC % /100WBC Bld Gas Analysis Time 1406 Sample Site LEFT BRACHIAL ABG pH 7.45 (7.35-7.45) ABG pCO2 29 L (34-45) mmHg ABG pO2 166 H* (80-100) mmHg ABG HCO3 19.5 L (22.0-26.0) mmol/L ABG Total CO2 20.4 L (21.0-29.0) MMOL/L ABG O2 Saturation 99 H (94-98) % ABG Base Excess -3.2 L (-2.0-3.0) mmol/L Wolf Test POSITIVE O2 Delivery Device BiPAP Vent Mode SYNCHRONOUS/TIMES FiO2 0.21 EPAP 4 cmH2O IPAP 7 cmH2O Sodium (135-145) mmol/L Potassium (3.5-5.0) mmol/L Chloride (101-111) mmol/L Carbon Dioxide (21-32) mmol/L Anion Gap (6-13) BUN (6-20) mg/dL Creatinine (0.6-1.2) mg/dL Estimated GFR (MDRD) (>89) Glucose (70-100) mg/dL Calcium (8.5-10.3) mg/dL Troponin I High Sens 1642.6 H* 2438.9 H* (2.3-19.7) ng/L B-Natriuretic Peptide (5-100) pg/mL Nasal Screen MRSA (PCR) (NEGATIVE) 08/24/20 08/24/20 Range/Units 12:30 11:46 WBC (4.8-10.8) x10^3/uL RBC (4.70-6.10) 10^6/uL Hgb (14.0-18.0) g/dL Hct (42.0-52.0) % MCV (80.0-94.0) fL MCH (27.0-31.0) pg MCHC (32.0-36.0) g/dL RDW (12.0-15.0) % Plt Count (130-450) 10^3/uL MPV (7.4-11.4) fL Neut # (Auto) (1.5-6.6) 10^3/uL Lymph # (Auto) (1.5-3.5) 10^3/uL [place] # (Auto) (0.0-1.0) 10^3/uL Eos # (Auto) (0.0-0.7) 10^3/uL Baso # (Auto) (0.0-0.1) 10^3/uL Absolute Nucleated RBC x10^3/uL Nucleated RBC % /100WBC Bld Gas Analysis Time Sample Site ABG pH (7.35-7.45) ABG pCO2 (34-45) mmHg ABG pO2 (80-100) mmHg ABG HCO3 (22.0-26.0) mmol/L ABG Total CO2 (21.0-29.0) MMOL/L ABG O2 Saturation (94-98) % ABG Base Excess (-2.0-3.0) mmol/L Wolf Test O2 Delivery Device Vent Mode FiO2 EPAP cmH2O IPAP cmH2O Sodium (135-145) mmol/L Potassium (3.5-5.0) mmol/L Chloride (101-111) mmol/L Carbon Dioxide (21-32) mmol/L Anion Gap (6-13) BUN (6-20) mg/dL Creatinine (0.6-1.2) mg/dL Estimated GFR (MDRD) (>89) Glucose (70-100) mg/dL Calcium (8.5-10.3) mg/dL Troponin I High Sens 1806.1 H* (2.3-19.7) ng/L B-Natriuretic Peptide (5-100) pg/mL Nasal Screen MRSA (PCR) NEGATIVE (NEGATIVE) - Diagnostic Imaging Diagnostic Imaging Results: positive: Final report reviewed ABX Reporting Has patient been on IV antibiotics over the past 48 hours?: No Sepsis Event Note (H) - Evaluation Current Stage of Sepsis: Ruled out Assessment/Plan - Problem List (1) NSTEMI (non-ST elevated myocardial infarction) Impression: Troponins 145> 1806 > 2438.9> 1642.6. D-Dimer elevated to 571. CTA chest/thorax negative for acute PE. Admission EKG with sinus tachycardia, prolonged QT and non-specific T-wave changes showing NSTEMI. He denies chest pain, only dypsnea. NSTEMI likely a result of hypoxia. After discussion with daughter and given Pt's ALS disease progression, will provide supportive care only at this time as he is not likely to have any benefit from a cardiac catheterization given his poor prognosis of weeks to 2-3 months related to ALS. 1. Aspirin daily (loading dose given in ED) 2. Enoxaparin BID 3. Metoprolol daily 4. Morphine and Nitro PRN chest pain 5. Telemetry while on ICU, currently NSR (2) ALS (amyotrophic lateral sclerosis) Impression: He began having symptoms of fasciculations and left arm weakness and leg weakness in approximately 2013. Formally diagnosed in 2016. He received Radicava treatment from 2017-spring 2018 when he felt it was making it worse. Has experienced progressive decline since before his January 2020 admission. After discharge from that admission he stayed with his daughter in [place] and eventually returned to his home on [address] [facility] [facility] with 24 hour caregivers. His other daughter lives nearby and both check in frequently and are actively involved in his care. He is only able to move his 2nd fingers at this time. Dependent for food and hydration but has had less intake over the last few weeks due to increased dysphagia and concerns for swallowing. He has muscle wasting and is quite thin, malnourished appearing. Shallow unlabored respirations, re quired HFNC and CPAP to increase oxygen saturations. His daughters brought his home Trilogy but he has not been using it today because he does not like it. He has not been using it at home due to feelings of claustrophobia. Dr. Forde spoke with him and his daughter yesterday for advanced care planning. He would like to remain at home with 24 hour caregiving until he passes and is amenable to a hospice referral. They are aware he has weeks to months remaining. Will plan for supportive care at this time. 1. Hospice referral, Dr. Gtz aware 2. Trilogy/RT referral- okay to use home Trilogy 3. Dysphagia precautions (3) Dyspnea Impression: Found to have O2 sats in the 50s on room air in the ED. Per his daughter he has a Trilogy at home that he has not consistently been using due to feelings of claustrophobia. It was brought in last evening and he used it for a while, but is not currently using it because he does not like it. Currently satting in the 90s on room air. Respirations are shallow, regular and even, unlabored. 1. RT following 2. Trilogy/CPAP as needed-okay to use home Trilogy Qualifiers: Dyspnea type: unspecified Qualified Code(s): R06.00 - Dyspnea, unspecified (4) Diabetes mellitus Impression: Diet controlled. He does not take insulin or other medications for this. No recent A1C in the chart. He does not have any diabetic complications. BG 98 this morning. 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 Unable to lift arms, hands, and legs, from the bed due to disease progression. Briefly lifted his head from the bed this morning while his nurse gave him water and breakfast, immediately after taking a sip his head fell back to the bed after expending a large amount of effort to keep the head up for a short period. Requires full care for turning, feeding, bathing, and positioning. (6) GERD (gastroesophageal reflux disease) Impression: Hx of GERD. Per prior records, has had 5 EGDs and dilation of a Schatzki ring. Qualifiers: Esophagitis presence: esophagitis presence not specified Qualified Code(s): K21.9 - Gastro-esophageal reflux disease without esophagitis
[2020-08-25] MEDS ORDERED: ALPRAZolam 0.25 MG TABLET PO PRN (12:10)
[2020-08-25] MEDS: ATORVASTATIN 40 MG TABLET PO SCH (21:13)
[2020-08-26] MEDS: MORPHINE 2 MG/ML CARPUJECT IVP PRN ×4 (02:45→11:23)
[2020-08-26] MEDS: METOPROLOL 5 MG/5 ML VIAL IVP SCH ×2 (06:06→06:52)
[2020-08-26] MEDS: SODIUM CHLORIDE FLUSH 0.9% 10 ML SYRINGE IVP SCH ×2 (06:07→09:09)
[2020-08-26] MEDS ORDERED: LORazepam 2 MG/ML VIAL IVP STA (06:14)
--- NOTE | 2020-08-26 07:47 | DISCHARGE SUMMARY ---
Discharge Summary Admit Date: 08/24/20 Discharge Date: 08/26/20 Discharging Provider: Zachery Partida Primary Care Provider: Huber Newman Condition at Discharge: Poor Discharge Disposition: 50 Hospice/Home DC/Xfer - DIAGNOSES Admission Diagnoses: NSTEMI ALS Dyspnea Diabetes mellitus Generalized weakness GERD Discharge Diagnoses with Status of Each Condition: NSTEMI: Acute. Home with hospice ALS: Chronic. Home with hospice. Dyspnea: Acute on chronic. Improved. On trilogy. Home with hospice. Diabetes mellitus: Chronic Generalized weakness: Acute on chronic. Worsening. GERD: Chronic - HPI History of Present Illness: Per HPI: 59 year old male with past hx ALS brought in for progressively worsening dyspnea, found to have O2 sats in the 50s on room air. History obtained from his daughter and ED provider given his dysphagia and dyspnea. Per his daughter, his caregiver was helping him on the toilet and noticed the patient was unable to help him get him up. The patient's son in law came to help get him back to bed and they called an ambulance to bring him to the ED. Per his daughter, the patient does not remember any of this. He has had progressively worsening dyspnea over the last week, no fevers or chills. Occasional productive cough in the morning upon first waking. Normally his oximetry is in the 90s but was low (unclear how low) when the caregiver checked. He denies chest pain. Labs were drawn in the ED, with a troponin measuring 145. 4 hours later it had increased to 1806. A D-Dimer was >500 and he was sent to CT for a CTA chest/thorax. He was negative for PE. An EKG revealed an NSTEMI, and he was admitted for supportive therapy for the NSTEMI as well as dyspnea. Denies chest pain or palpitations. Pt was diagnosed with ALS in 2016, with symptoms starting in 2013. He is sedentary due to progressing disease and relies on caregivers 24/ for all care. His daughter reports he spends most of his time in bed. He had been prescribed a Trilogy to use daily but has not been doing so due to claustrophobia. He is not coughing. In the ED, he was found to have O2 sats to the 50s and placed on HFNC. He is now on CPAP while waiting for his daughters to bring his Trilogy f rom home. Update: This afternoon patient is more awake. He does not remember having difficulty in the bathroom, his son in law coming over, or EMS arriving. He reports that over the past few weeks he stopped using his Xanax because he believed he was getting a little better and did not need it. However, over the past week upon waking and sitting up he has noticed his heart rate speeding up and he has felt more short of breath despite having O2 sats in the 90s. His heart rate then sustains 120-140s for most of the day. He has noted that his quality of life has worsened and continues to do so and he is willing to be referred to hospice at this time. Patient was initially treated with aspirin, Lovenox, metoprolol, morphine and nitroglycerin. However after discussion with the patient's family it was decided the patient would go home on hospice. Patient was discharged home on 08/26/20 wi th plan to be admitted to hospice on the same day upon arrival home. As a result subsequent care was directed at comfort. - ALLERGIES Allergies/Adverse Reactions: Allergies Allergy/AdvReac Type Severity Reaction Status Date / Time No Known Drug Allergies Allergy Verified 08/24/20 09:40 - MEDICATIONS Home Medications: Ambulatory Orders Medication Instructions Recorded Confirmed LORazepam [Lorazepam INTENSOL] 2 mg PO Q8H PRN #30 ml 08/26/20 Morphine Sulfate [Morphine Sulf 0.25 ml PO Q4H PRN #30 ml 08/26/20 Oral (Roxanol)] Ondansetron Odt [Zofran Odt] 4 mg TL Q6H PRN #10 tablet 08/26/20 - PHYSICAL EXAM AT DISCHARGE General Appearance: positive: No acute distress, Lethargic Eyes Bilateral: positive: PERRL, EOMI ENT: positive: Dry mucous membranes Neck: positive: No JVD Respiratory: positive: Chest non-tender, No respiratory distress. negative: Wheezes, Rales, Rhonchi Cardiovascular: positive: Regular rate & rhythm, No murmur Abdomen: positive: Non-tender, No organomegaly, Nml bowel sounds, No distention. negative: Guarding, Rebound Back: positive: Nml inspection Skin: positive: Color nml Extremities: positive: Other (Cold to touch) Neurologic/Psychiatric: positive: Oriented x3, Weakness, Depressed mood/affect. negative: Motor nml - LABS Result Diagrams: 08/25/20 05:05 08/25/20 05:05 - SEPSIS Current Stage of Sepsis: Ruled out - FOLLOW UP Follow Up: 25 - TIME SPENT Time Spent in Discharge (Minutes): 25
--- NOTE | 2020-08-26 07:48 | Discharge Plan ---
Discharge Plan Problem Reviewed?: Yes Disposition: 50 Hospice/Home DC/Xfer Condition: Poor Prescriptions: LORazepam [Lorazepam INTENSOL] 2 mg PO Q8H PRN #30 ml PRN Reason: Anxiety Morphine Sulfate [Morphine Sulf Oral (Roxanol)] 0.25 ml PO Q4H PRN #30 ml PRN Reason: Pain Ondansetron Odt [Zofran Odt] 4 mg TL Q6H PRN #10 tablet PRN Reason: Nausea / Vomiting Diet: Soft Activity Restrictions: Activity as Tolerated Instruction Topics: Atorvastatin tablets, Metoprolol tablets Plan of Treatment: You presented with progressively worsening difficulty breathing. At the time of admission your oxygen level was 50% on room air. Normally it is greater than 90%. Work-up showed you had an NSTEMI. You were initially treated with aspirin, Lovenox, metoprolol and morphine per guidelines. After discussion with your family it was decided that only supportive care be provided Given your ALS disease progression and prognosis of weeks to 2-3 months. Consequently you are being discharged home on hospice. Ativan, morphine and Zofran have been ordered for anxiety, pain and nausea respectively as needed. You will be seen by the hospice team once you get home for continuation of your care. Care Goals: You presented with progressively worsening difficulty breathing. At the time of admission your oxygen level was 50% on room air. Normally it is greater than 90%. Work-up showed you had an NSTEMI. You were initially treated with aspirin, Lovenox, metoprolol and morphine per guidelines. After discussion with your family it was decided that only supportive care be provided Given your ALS disease progression and prognosis of weeks to 2-3 months. Consequently you are being discharged home on hospice. Ativan, morphine and Zofran have been ordered for anxiety, pain and nausea respectively as needed. You will be seen by the hospice team once you get home for continuation of your care. Assessment: This was discussed in your presence with your daughter at bedside. You all are in agreement with the plan. No Smoking: If you smoke, Please STOP! Call for help. Follow-up with: Provider,Other [Primary Care Provider] -
[2020-08-26] MEDS: ENOXAPARIN 60 MG/0.6 ML SYRINGE SUBQ SCH (09:09)
[2020-08-26] MEDS: CHLORHEXIDINE GLUCONATE 15 ML UDC PO SCH (09:09)
[2020-08-26] MEDS: ASPIRIN CHEW 81 MG TABLET PO SCH (09:09)
[2020-08-26] MEDS: SODIUM CHLORIDE FLUSH 0.9% 10 ML SYRINGE IVP PRN ×2 (09:21→11:24)
[2020-08-26 11:05] VITALS: BP 124/87
== END 2020-08-26 11:55 | disposition hospice, home (50) | DRG 281 ==
LOC: EDBD → EDUNIT# → ED 07:09 → UNDOADMOB 11:11 → ICU 11:11 → OBSVTOIN 08-25 19:29 → UNDODISOB 08-26 11:55
PROVIDERS: ADMIT Specialist; ATTEND Internal Medicine
DX: I21.4 Non-ST elevation (NSTEMI) myocardial infarction (principal); R06.02 Shortness of breath; G12.21 Amyotrophic lateral sclerosis; I10 Essential (primary) hypertension; R06.09 Other forms of dyspnea; R40.0 Somnolence; E11.9 Type 2 diabetes mellitus without complications; R53.1 Weakness; Z66 Do not resuscitate; K21.9 Gastro-esophageal reflux disease without esophagitis; R63.4 Abnormal weight loss; Z51.5 Encounter for palliative care; R13.10 Dysphagia, unspecified; R33.9 Retention of urine, unspecified; R00.0 Tachycardia, unspecified; R09.02 Hypoxemia; F40.240 Claustrophobia; Z20.822 Contact with and (suspected) exposure to COVID-19
CPT/HCPCS: 0202U; 36415; 36600; 80048; 80053; 82803; 83735; 83880; 84484; 85025; 85379; 87150; 93005; 94640; 94660; 96374; 96375; 96376; 99284

== ENCOUNTER 2020-08-26 11:59 | Outpatient (CLI) | payer MEDICARE | END 2020-08-26 12:00 | disposition home or self-care (01) | LOC: EMS 11:59 | PROVIDERS: ATTEND Internal Medicine | DX: G12.21 Amyotrophic lateral sclerosis (principal); I21.4 Non-ST elevation (NSTEMI) myocardial infarction; Z74.01 Bed confinement status | CPT/HCPCS: A0425; A0428 ==